=== PATIENT | female | born 1935 | race Caucasian/White ===

== ENCOUNTER 2017-01-10 00:55 | Inpatient (IN) ==
[2017-01-10] MEDS ORDERED: Ipratropium/Albuterol Neb 3 ML IH ONE (01:05)
[2017-01-10] MEDS ORDERED: methylPREDNISolone 125 MG/2 ML VIAL IVP ONE (01:05)
[2017-01-10] MEDS ORDERED: Ipratropium/Albuterol Neb 3 ML ONE ×2 (01:07→09:29)
--- NOTE | 2017-01-10 01:10 | Emergency Department Note ---
Disposition Clinical Impression: SVETLANA (acute kidney injury), NSTEMI (non-ST elevated myocardial infarction) Sepsis Qualifiers: Sepsis type: sepsis due to unspecified organism Qualified Code(s): A41.9 - Sepsis, unspecified organism Acute CHF Qualifiers: Congestive heart failure type: unspecified congestive heart failure type Qualified Code(s): I50.9 - Heart failure, unspecified Disposition: Admitted As Inpatient SOB HPI - General Chief Complaint: ED Shortness of Breath/Dyspnea Stated Complaint: christian Time Seen by Provider: 01/10/17 01:05 Nursing Notes Reviewed: Yes Vital Signs Reviewed: Yes - History of Present Illness Mrs. Moe, 81-year-old female, presents from home via EMS for evaluation of dyspnea. Onset tonight at approximately 22:00. Patient notes she has had several exacerbations of her asthma this week; denies exacerbation being the most severe. She has no home oxygen. She does have home albuterol inhalers which did help her symptoms slightly. She also reports chest pain across the top of her chest. She has difficulty describing it secondary to her dyspnea. Per EMS, on arrival, patient did not have accessory muscle usage however she was in conversational dyspnea. She was hypoxic in the 80s on room air but her saturation juarez to mid high 90s on 6 L nasal cannula while in route. PMH: Hypertension, hyperlipidemia, asthma. No history of CAD or ACS. ROS: Positive: Dyspnea Negative: Fever, chills, nausea, vomiting - Related Data Home Medications Medication Instructions Recorded Confirmed Acetaminophen [Tylenol Arthritis] 1,300 mg PO Q8H PRN 07/20/15 07/20/15 Cholecalciferol (Vitamin D3) 5,000 unit PO DAILY 07/20/15 07/20/15 [Vitamin D3] Ginkgo Biloba [place] Extract [Ginkgo 120 mg PO DAILY 07/20/15 07/20/15 Biloba] Potassium Chloride [K-Tab ER] 10 meq PO DAILY 07/20/15 07/20/15 Simvastatin [Zocor] 20 mg PO HS 07/20/15 07/20/15 hydrOXYzine pamoate [HydrOXYzine 25 mg PO BID PRN 07/20/15 07/20/15 Pamoate] Previous Rx's Medication Instructions Recorded Meclizine HCl [Antivert] 25 mg PO 1-2XD PRN #30 tablet 09/17/14 Ciprofloxacin HCl [Cipro] 250 mg PO BID #14 tab 07/22/15 Lisinopril/Hydrochlorothiazide 1 each PO BID #60 tablet 07/22/15 [Zestoretic 20-25 mg Tablet] Metoprolol [Lopressor] 50 mg PO BID #60 tablet 07/22/15 hydrALAZINE [HydrALAZINE] 25 mg PO Q8H #90 tablet 07/22/15 Allergies Allergy/AdvReac Type Severity Reaction Status Date / Time Sulfa (Sulfonamide Allergy See Verified 01/10/17 07:10 Antibiotics) Comments All systems ED: reviewed and negative except as stated. Review of Systems: As Per HPI Past Medical History - Past Medical History Medical history: Reports: cancer, hyperlipidemia, hypertension, other Surgical history: Reports: other Psychiatric history: Reports: no psych history - Social History Smoking Status: Unknown if ever smoked Smokeless Tobacco Status: No Alcohol use: Reports: none Drug use: Reports: none Physical Exam Vital Signs Reviewed General: Patient is alert, oriented, and in acute respiratory [id number] word conversational dyspnea, accessory muscle usage, tachypnea, tachycardia HEENT: No facial asymmetry. Head is normocephalic and atraumatic. PERRLA. Oral mucosa moist. Trachea midline. Cardiovascular: Heart regular rate and rhythm without clicks, rubs, gallops, or murmurs. No JVD. PMI nondisplaced. Respiratory: Symmetric chest rise with good respiratory effort. Bilateral breath sounds are clear without wheezing, crackles, or rhonchi. Abdomen: Bowel sounds present normoactive x-4 quadrants. Abdomen is soft, nondistended, and nontender. No organomegaly noted. Musculoskeletal: Spontaneously moving all extremities. Neuro: GCS 15. Alert and oriented 4. Skin: Warm, dry, intact. Psych: Patient's affect is appropriate for situation. Course Course Narrative: Patient presents in overt respiratory distress. She is a remote former smoker and denies history of COPD. We will manage her as a COPD/asthma exacerbation. Lung sounds are wheezy; low suspicion for pneumonia, bronchiolitis is possible. 01:27 Patient is refusing IV access. She will only allow a butterfly in the dorsum of her right hand. I was clear and stated that we needed a larger IV access for fluid resuscitation and medication administration. She continually refused. She would not allow any placement anywhere on her left upper extremity. I again stated to the patient that she was limiting my ability to help her by refusing us access to her vascular system. She expressed understanding and continued to refuse. Chest x-ray concerning for pulmonary edema. Patient has no formal diagnosis of congestive heart failure. Will treat as such. D-dimer is elevated. Will CTA chest. CTA chest shows pulmonary edema with no PE. Creatinine clearance calculated as 22 mL/min thus Lovenox is contraindicated. 06:40 Patient's lactate return is 5.0. She is orally been admitted to the hospitalist service. I paged and spoke with Dr. Gomez who who is orally familiar with the patient. He advises no action at this time do not have a source. Will encourage a urine specimen. Chest X-Ray 01/10/17 01:05 IMPRESSION: Pulmonary edema. D/ / Mookie Babcock MD / Mookie Babcock MD Interpreting Provider: Mookie Babcock MD Vital Signs Temperature 97.8 F 01/10/17 01:04 Pulse Rate 103 01/10/17 01:04 Respiratory Rate 22 01/10/17 01:04 Blood Pressure 163/91 01/10/17 01:04 O2 Sat by Pulse Oximetry 95 01/10/17 01:04 Temperature 97.9 F 01/10/17 07:04 Pulse Rate 113 01/10/17 07:04 Respiratory Rate 20 01/10/17 07:04 Blood Pressure 181/103 01/10/17 07:04 O2 Sat by Pulse Oximetry 95 01/10/17 07:04 Oxygen Delivery Oxygen Delivery Nasal Cannula Shortness of Breath/Dyspnea - Lab Data Result diagrams: 01/10/17 06:09 01/10/17 02:05 Lab Results 01/10/17 01/10/17 01/10/17 Range/Units 02:05 02:05 02:05 WBC 22.1 H (4.3-11.1) K/mcL RBC 4.43 (3.82-4.97) M/mcL Hgb 10.2 L (11.5-15.4) g/dL Hct 33.9 L (35.3-44.9) % MCV 76.5 L (83.0-100.0) fL MCH 23.0 L (28.0-33.3) pg MCHC 30.1 L (31.6-35.5) g/dL RDW 16.7 H (11.5-14.5) % Plt Count 376 (140-400) K/mcL MPV 11.3 (9.4-12.4) fL Immature Gran % 0.9 (0-4) % Seg Neutrophils % 89.7 % Lymphocytes % 5.3 % Monocytes % 3.8 % Eosinophils % 0.0 % Basophils % 0.3 % Neutrophils # 19.8 H (1.6-8.9) K/mcL Lymphocytes # 1.2 (0.6-4.6) K/mcL Monocytes # 0.8 (0.0-1.3) K/mcL Eosinophils # 0.0 (0.0-0.6) K/mcL Basophils # 0.1 (0.0-0.2) K/mcL Immature Plt Fraction 6.9 H (1.1-6.1) % PT (9.4-12.1) Seconds INR APTT (26.0-36.0) Seconds D-Dimer 1505 H (0-500) ng/mLFEU VBG pH (7.32-7.42) pH Units VBG pCO2 (41-51) mmHg VBG pO2 (25-50) mmHg VBG HCO3 (21-27) mEq/L Sodium 141 (136-145) mEq/L Potassium 3.6 (3.5-4.5) mEq/L Chloride 106 (98-109) mEq/L Carbon Dioxide 20 (19-29) mEq/L BUN 15 (7-20) mg/dL Creatinine 1.12 H (0.57-1.11) mg/dL Est GFR ( Amer) 57 L (> 60) Est GFR (Non-Af Amer) 47 L (> 60) BUN/Creatinine Ratio 13 (6-26) Glucose 154 H (70-99) mg/dL Calculated Osmolality 296 (280-300) Lactic Acid (0.5-2.2) mmol/L Calcium 9.5 (8.6-10.8) mg/dL Phosphorus (2.3-4.7) mg/dL Magnesium (1.6-2.6) mg/dL Troponin I (0-0.03) ng/mL B-Natriuretic Peptide (0-100) pg/mL 01/10/17 01/10/17 01/10/17 Range/Units 02:05 02:05 02:05 WBC (4.3-11.1) K/mcL RBC (3.82-4.97) M/mcL Hgb (11.5-15.4) g/dL Hct (35.3-44.9) % MCV (83.0-100.0) fL MCH (28.0-33.3) pg MCHC (31.6-35.5) g/dL RDW (11.5-14.5) % Plt Count (140-400) K/mcL MPV (9.4-12.4) fL Immature Gran % (0-4) % Seg Neutrophils % % Lymphocytes % % Monocytes % % Eosinophils % % Basophils % % Neutrophils # (1.6-8.9) K/mcL Lymphocytes # (0.6-4.6) K/mcL Monocytes # (0.0-1.3) K/mcL Eosinophils # (0.0-0.6) K/mcL Basophils # (0.0-0.2) K/mcL Immature Plt Fraction (1.1-6.1) % PT (9.4-12.1) Seconds INR APTT (26.0-36.0) Seconds D-Dimer (0-500) ng/mLFEU VBG pH (7.32-7.42) pH Units VBG pCO2 (41-51) mmHg VBG pO2 (25-50) mmHg VBG HCO3 (21-27) mEq/L Sodium (136-145) mEq/L Potassium (3.5-4.5) mEq/L Chloride (98-109) mEq/L Carbon Dioxide (19-29) mEq/L BUN (7-20) mg/dL Creatinine (0.57-1.11) mg/dL Est GFR ( Amer) (> 60) Est GFR (Non-Af Amer) (> 60) BUN/Creatinine Ratio (6-26) Glucose (70-99) mg/dL Calculated Osmolality (280-300) Lactic Acid 3.5 H (0.5-2.2) mmol/L Calcium (8.6-10.8) mg/dL Phosphorus (2.3-4.7) mg/dL Magnesium (1.6-2.6) mg/dL Troponin I 1.27 H* (0-0.03) ng/mL B-Natriuretic Peptide 1056 H (0-100) pg/mL 01/10/17 01/10/17 01/10/17 Range/Units 02:31 06:09 06:09 WBC 15.9 H (4.3-11.1) K/mcL RBC 4.54 (3.82-4.97) M/mcL Hgb 10.1 L (11.5-15.4) g/dL Hct 34.3 L (35.3-44.9) % MCV 75.6 L (83.0-100.0) fL MCH 22.2 L (28.0-33.3) pg MCHC 29.4 L (31.6-35.5) g/dL RDW 16.7 H (11.5-14.5) % Plt Count 429 H (140-400) K/mcL MPV 11.0 (9.4-12.4) fL Immature Gran % (0-4) % Seg Neutrophils % % Lymphocytes % % Monocytes % % Eosinophils % % Basophils % % Neutrophils # (1.6-8.9) K/mcL Lymphocytes # (0.6-4.6) K/mcL Monocytes # (0.0-1.3) K/mcL Eosinophils # (0.0-0.6) K/mcL Basophils # (0.0-0.2) K/mcL Immature Plt Fraction (1.1-6.1) % PT 12.6 H (9.4-12.1) Seconds INR 1.2 APTT 26.2 (26.0-36.0) Seconds D-Dimer (0-500) ng/mLFEU VBG pH 7.31 L (7.32-7.42) pH Units VBG pCO2 47 (41-51) mmHg VBG pO2 67 H (25-50) mmHg VBG HCO3 24 (21-27) mEq/L Sodium (136-145) mEq/L Potassium (3.5-4.5) mEq/L Chloride (98-109) mEq/L Carbon Dioxide (19-29) mEq/L BUN (7-20) mg/dL Creatinine (0.57-1.11) mg/dL Est GFR ( Amer) (> 60) Est GFR (Non-Af Amer) (> 60) BUN/Creatinine Ratio (6-26) Glucose (70-99) mg/dL Calculated Osmolality (280-300) Lactic Acid (0.5-2.2) mmol/L Calcium (8.6-10.8) mg/dL Phosphorus (2.3-4.7) mg/dL Magnesium (1.6-2.6) mg/dL Troponin I (0-0.03) ng/mL B-Natriuretic Peptide (0-100) pg/mL 01/10/17 01/10/17 Range/Units 06:09 06:09 WBC (4.3-11.1) K/mcL RBC (3.82-4.97) M/mcL Hgb (11.5-15.4) g/dL Hct (35.3-44.9) % MCV (83.0-100.0) fL MCH (28.0-33.3) pg MCHC (31.6-35.5) g/dL RDW (11.5-14.5) % Plt Count (140-400) K/mcL MPV (9.4-12.4) fL Immature Gran % (0-4) % Seg Neutrophils % % Lymphocytes % % Monocytes % % Eosinophils % % Basophils % % Neutrophils # (1.6-8.9) K/mcL Lymphocytes # (0.6-4.6) K/mcL Monocytes # (0.0-1.3) K/mcL Eosinophils # (0.0-0.6) K/mcL Basophils # (0.0-0.2) K/mcL Immature Plt Fraction (1.1-6.1) % PT (9.4-12.1) Seconds INR APTT (26.0-36.0) Seconds D-Dimer (0-500) ng/mLFEU VBG pH (7.32-7.42) pH Units VBG pCO2 (41-51) mmHg VBG pO2 (25-50) mmHg VBG HCO3 (21-27) mEq/L Sodium (136-145) mEq/L Potassium (3.5-4.5) mEq/L Chloride (98-109) mEq/L Carbon Dioxide (19-29) mEq/L BUN (7-20) mg/dL Creatinine (0.57-1.11) mg/dL Est GFR ( Amer) (> 60) Est GFR (Non-Af Amer) (> 60) BUN/Creatinine Ratio (6-26) Glucose (70-99) mg/dL Calculated Osmolality (280-300) Lactic Acid 5.0 H* (0.5-2.2) mmol/L Calcium (8.6-10.8) mg/dL Phosphorus 3.2 (2.3-4.7) mg/dL Magnesium 1.8 (1.6-2.6) mg/dL Troponin I (0-0.03) ng/mL B-Natriuretic Peptide (0-100) pg/mL - EKG Data EKG attestation: Yes I reviewed and interpreted this EKG. 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 Normal intervals NV 160, QRS 84, QT/QTC 39/448. Normal axis. Concerning T-wave inversions in V2 through V5 which are new compared to previous EKG dated 2015. No STEMI Attestation Statement - Attestation Attestation: I examined this patient and my medical decision-making was reviewed with the Resident Physician. I agree with the documented findings, disposition and treatment plan as described except to the extent set forth below. Findings consistent with possible N STEMI. Proceed with heparinization. EKG shows nonspecific ST segment changes. Additionally patient has pulmonary edema, she is very challenging to obtain IV access on. Ultimatly IV access was obtained and CT scan was obtained to rule out pulmonary embolism. The patient will be admitted for an STEMI, pulmonary edema, she is on BiPAP but stable at this time. Antibiotics were given due to lactic acidosis. She will need hydration and trending of lactate. Discussed case with hospitalist team. Plan to admit for further evaluation by her hospitalist team. I spent greater than 35 minutes of critical care time resuscitating this acutely ill patient suffering from hypoxia. This was excluding billable procedures
[2017-01-10] MEDS ORDERED: Levofloxacin 750 MG/150 ML 750 MG/150 ML BAG IVPB ONE (01:31)
[2017-01-10] MEDS ORDERED: Nitroglycerin 1 INCH/GM PACKET TP ONE (02:03)
[2017-01-10] MEDS ORDERED: Furosemide 40 MG/4 ML VIAL IVP ONE (02:03)
[2017-01-10 02:20] LABS: Basophils # 0.1 K/mcL (0.0-0.2); Basophils % 0.3 %; Hematocrit 33.9 % (35.3-44.9); Hemoglobin 10.2 g/dL (11.5-15.4); Immature Granulocytes % 0.9 % (0-4); Immature Platelets 6.9 % (1.1-6.1); Lymphocytes # 1.2 K/mcL (0.6-4.6); Lymphocytes % 5.3 %; Mean Corpuscular HGB Conc 30.1 g/dL (31.6-35.5); Mean Corpuscular Volume 76.5 fL (83.0-100.0); Mean Platelet Volume 11.3 fL (9.4-12.4); Monocytes # 0.8 K/mcL (0.0-1.3); Monocytes % 3.8 %; Neutrophils # 19.8 K/mcL (1.6-8.9); Platelet Count 376 K/mcL (140-400); Red Blood Count 4.43 M/mcL (3.82-4.97); Red Cell Distribution Width 16.7 % (11.5-14.5); Segmented Neutrophils % 89.7 %
[2017-01-10 02:28] LABS: Calcium 9.5 mg/dL (8.6-10.8); Potassium 3.6 mEq/L (3.5-4.5)
[2017-01-10 02:36] LABS: VBG HCO3 24 mEq/L (21-27); VBG PCO2 47 mmHg (41-51); VBG PH 7.31 pH Units (7.32-7.42); VBG PO2 67 mmHg (25-50)
[2017-01-10] MEDS ORDERED: Aspirin 81 MG TAB.CHEW PO ONE (05:14)
[2017-01-10] MEDS ORDERED: *HR* Heparin 5,000 UNIT/ML VIAL IVP ONE (05:16)
[2017-01-10] MEDS ORDERED: *HR* Heparin 5,000 UNIT/ML VIAL IVP PRN ×2 (05:16)
--- NOTE | 2017-01-10 05:59 | Internal Med History&Physical ---
Date of Encounter: 01/10/17 Time of Encounter: 05:56 Assessment and Plan (1) Acute and chronic respiratory failure with hypoxia Current visit: Yes Status: Acute On presentation she was severely tachypneic and had increased work of breathing and was placed on BiPAP. Currently symptoms have improved after Solu-Medrol and bronchodilator and she tolerates nasal cannula. We will continue with nasal cannula and BiPAP as needed for work of breathing. She received treatment with Levaquin and Solu-Medrol for suspected COPD exacerbation. She does not have however a history of COPD. I have reviewed PFTs done outpatient which shows restrictive restrictive pattern which is inconsistent with COPD. I will not continue steroids and antibiotics. Patient does have elevated white blood cell count but no evidence of infection. We will monitor this. At this point there is no clear evidence of sepsis since there is no source of infection. We will order urinalysis and culture to workup elevated white blood cell count. (2) DVT prophylaxis Current visit: Yes Status: Acute Will be covered with heparin drip. (3) Essential hypertension Current visit: Yes Status: Acute We will start IV metoprolol. Continue oral home medication regimen. Hold HARSHA inhibitor due acute renal failure. (4) SVETLANA (acute kidney injury) Current visit: Yes Status: Acute Monitor kidney function closely. Avoid nephrotoxins. (5) Acute CHF Current visit: Yes Status: Acute There is no echocardiogram in our records. Likely acute on chronic diastolic dysfunction triggered by acute ischemic event. We will treat her with IV Lasix, start nitro drip. Start IV metoprolol. We will order echocardiogram. Qualifiers: Congestive heart failure type: unspecified congestive heart failure type Qualified Code(s): I50.9 - Heart failure, unspecified (6) NSTEMI (non-ST elevated myocardial infarction) Current visit: Yes Status: Acute Patient has atypical chest pain with unequivocal ischemic changes on the EKG and elevated troponin collectively supporting a diagnosis of non-ST elevation MO. Admit. Telemetry. Heparin drip per ACS protocol. Trend troponin. Repeat EKG. Consult cardiology. Nothing by mouth for possible need for left heart catheterization. The patient wishes to not be resuscitated or placed on life support in the event of cardiac arrest. She is awake alert oriented and has good understanding of her medical condition and therefore has full decision-making capacity. I will order DNR CCA. (7) Obesity (BMI 30-39.9) Current visit: No Status: Chronic Outpatient weight loss regimen. Internal Medicine - H&P: HPI Chief complaint: Shortness of breath Admitted From: Emergency Dept Plans for Post Hospital Care: Home History of present illness: Ms. Moe is a 81 year old female with past medical history significant for asthma, hyperlipidemia and hypertension who presented to the hospital for shortness of breath. Last night she woke up from sleep suddenly with severe shortness of breath and dull pressure-like chest pain across her upper chest. She used her inhalers but did not get any relief. Symptoms lasted for over an hour and she decided to come to the hospital. Evaluation in the emergency department she was found in respiratory distress. She was treated with nitroglycerin paste, IV steroids and inhaled bronchodilators and placed on BiPAP. She was referred for admission for further care. Currently sharp she reports being chest pain-free. A 10 point review of systems was negative except as above. Family history was reviewed and found to be noncontributory due to patient's advanced age. Social history: Remote history of smoking, no alcohol and drug use. She lives independently. Past Med Surg Social Fam HX - Past Medical History Medical history: cancer, hyperlipidemia, hypertension, other Psychiatric history: no psych history - Past Surgical History Surgical History: other - Social History Smoking Status: Unknown if ever smoked Smokeless Tobacco Status: No Alcohol use: none Drug use: none - Family History Brother Family Member Ethnicity: Non- Living Status: Hx Family Cardiac Disorders: Yes (heart bypass) Hx Family Cancer: Yes (Prostate cancer) Hx Family Endocrine Disorder: Yes (Diabetes, Type I, Kidney dialysis) Internal Medicine - H&P: Meds Meclizine HCl [Antivert] 25 mg PO 1-2XD PRN #30 tablet 09/17/14 [Rx] Acetaminophen [Tylenol Arthritis] 1,300 mg PO Q8H PRN 07/20/15 [History] Cholecalciferol (Vitamin D3) [Vitamin D3] 5,000 unit PO DAILY 07/20/15 [History] Ginkgo Biloba [place] Extract [Ginkgo Biloba] 120 mg PO DAILY 07/20/15 [History] Potassium Chloride [K-Tab ER] 10 meq PO DAILY 07/20/15 [History] Simvastatin [Zocor] 20 mg PO HS 07/20/15 [History] hydrOXYzine pamoate [HydrOXYzine Pamoate] 25 mg PO BID PRN 07/20/15 [History] Ciprofloxacin HCl [Cipro] 250 mg PO BID #14 tab 07/22/15 [Rx] Lisinopril/Hydrochlorothiazide [Zestoretic 20-25 mg Tablet] 1 each PO BID #60 tablet 07/22/15 [Rx] Metoprolol [Lopressor] 50 mg PO BID #60 tablet 07/22/15 [Rx] hydrALAZINE [HydrALAZINE] 25 mg PO Q8H #90 tablet 07/22/15 [Rx] 3 Allergy/AdvReac Type Severity Reaction Status Date / Time Sulfa (Sulfonamide Allergy See Verified 07/20/15 21:48 Antibiotics) Comments All Systems PM: A 10-system review of systems was performed and is negative for pertinent findings except as documented above in the HPI. - Constitutional Vitals: Temp Pulse Resp BP Pulse Ox 97.8 F 114 24 153/84 98 01/10/17 01:04 01/10/17 04:09 01/10/17 04:09 01/10/17 04:09 01/10/17 04:09 General appearance: Present: mild distress, A&O X 3 - Eye Eye exam: Present: PERRL, conjuntiva pink, sclera anicteric Pupils: Present: PERRL - Neck Neck exam general surgery: Present: supple, trachea midline. Absent: lymphadenopathy - Respiratory Respiratory exam: Present: rales, tachypnea. Absent: accessory muscle use, rhonchi, wheezes - Cardiovascular Cardiovascular exam: Present: RRR, +S1, +S2, tachycardia. Absent: diastolic murmur, gallop, rubs, systolic murmur - GI/Abdominal GI/Abdominal exam: Present: normal bowel sounds, soft, no peritoneal signs. Absent: distended, tenderness - Extremities Exam Extremities exam: Present: warm, radial pulses palpable and symmetrical. Absent : calf tenderness, cyanotic, pedal edema - Neurological Exam Neurological exam: Present: CN II-XII intact, oriented X3, no focal deficits. Absent: pronater drift, facial droop, speech deficit - Skin Skin exam: Present: dry, intact Internal Med - H&P Results - Labs CBC & Chem 7: 01/10/17 02:05 01/10/17 02:05 Labs: Short CBC 01/10/17 Range/Units 02:05 WBC 22.1 H (4.3-11.1) K/mcL Hgb 10.2 L (11.5-15.4) g/dL Hct 33.9 L (35.3-44.9) % Plt Count 376 (140-400) K/mcL Neutrophils # 19.8 H (1.6-8.9) K/mcL BMP 01/10/17 02:05 Sodium 141 Potassium 3.6 Chloride 106 Carbon Dioxide 20 BUN 15 Creatinine 1.12 H Glucose 154 H Calcium 9.5 Cardiac Enzymes 01/10/17 Range/Units 02:05 Troponin I 1.27 H* (0-0.03) ng/mL - ABG Interpretation ABG results: 01/10/17 02:31 VBG pH 7.31 L VBG pCO2 47 VBG pO2 67 H VBG HCO3 24 - EKG Data -: EKG Interpreted by Myself EKG shows normal: sinus rhythm (ST depressions and T-wave inversions in leads 1 , aVL and leads V2 to V6.) Rate: tachycardia - EKG Data Prior EKG available for review: yes When compared to previous EKG: there are significant changes (ST depressions and T-wave inversions are new when compared to EKG from July 2015.) - Impressions ITS Impressions Chest X-Ray 01/10/17 01:05 IMPRESSION: Pulmonary edema. D/ / Mookie Babcock MD / Mookie Babcock MD Interpreting Provider: Mookie Babcock MD Chest CTA 01/10/17 02:43 IMPRESSION: 1. Limited study with no central or proximal segmental pulmonary embolus. 2. Pleural effusions. Adjacent airspace disease likely represents atelectasis though ground-glass opacities could also indicate pulmonary edema. 3. Coronary artery disease. D/ / Mookie Babcock MD / Mookie Babcock MD Interpreting Provider: Mookie Babcock MD
[2017-01-10] MEDS ORDERED: Naloxone 0.4 MG/ML INJ IVP PRN (06:21)
[2017-01-10] MEDS ORDERED: Ondansetron 4 MG/2 ML VIAL IVP PRN (06:21)
[2017-01-10 06:24] LABS: INR 1.2; Prothrombin Time 12.6 Seconds (9.4-12.1)
[2017-01-10 06:26] LABS: Activated Partial Thrombo Time 26.2 Seconds (26.0-36.0)
[2017-01-10 06:33] LABS: Magnesium 1.8 mg/dL (1.6-2.6); Phosphorous 3.2 mg/dL (2.3-4.7)
[2017-01-10 06:41] LABS: Hematocrit 34.3 % (35.3-44.9); Hemoglobin 10.1 g/dL (11.5-15.4); Mean Corpuscular HGB Conc 29.4 g/dL (31.6-35.5); Mean Corpuscular Hemoglobin 22.2 pg (28.0-33.3); Mean Corpuscular Volume 75.6 fL (83.0-100.0); Platelet Count 429 K/mcL (140-400); Red Blood Count 4.54 M/mcL (3.82-4.97); Red Cell Distribution Width 16.7 % (11.5-14.5)
[2017-01-10] MEDS: Heparin 25,000 UNIT/500 ML D5W 25,000 UNIT/500 ML MLS IVC SCH (06:41)
[2017-01-10 06:49] LABS: Bilirubin,Urine Negative (Negative); Blood,Urine Trace (Negative); Clarity,Urine Cloudy (Clear); Color,Urine Yellow (Yellow); Glucose,Urine (UA) Normal (Normal); Ketones,Urine Negative (Negative); Leukocyte Esterase,Urine Negative (Negative); Nitrite,Urine Negative (Negative); PH,Urine 5.5 pH Units (5.0-8.0); Protein,Urine Trace mg/dL (Neg-Trace); Specific Gravity,Urine 1.029 (1.010-1.025); Urobilinogen,Urine Normal (Normal)
[2017-01-10 06:51] LABS: Bacteria,Urine None Seen per hpf (None-Few); Hyaline Casts,Urine None Seen per lpf (None-Few); Squamous Epithelial Cell,Urine Many per lpf (None-Few); WBC,Urine 0-3 per hpf (0-3)
[2017-01-10 07:10] LABS: RBC,Urine 0-3 per hpf (0-3)
[2017-01-10] MEDS ORDERED: Ipratropium/Albuterol Neb 3 ML IH PRN (09:14)
--- NOTE | 2017-01-10 09:16 | Event Note ---
Date of Encounter: 01/10/17 Time of Encounter: 08:50 81 year old female with h/o- HTN, HL admitted with worsening shortness of breath and chest discomfort. Patient seen and examined at bedside; reports feeling better, off BiPAP now; Chest- S1, S2 heard, tachycardic Lungs with B/L basal crepts and end-expiratory wheezing Labs reviewed- Troponin peak 6, lactic acid improving to 4.2, WBC improving NSTEMI- chest pain, EKG changes per previous notes (cannot find EKG), Troponin elevation- continue IV Heparin drip, beta ned, ASA, statin; f/up Echocardiogram, Cardiology consult. High risk for complications. Acute CHF- likely due to coronary ischemic event. F/up Echocardiogram. Continue IV Lasix, fluid restriction, breathing treatments, supplemental O2, urine output monitoring; PRN NIPPV; improving; SIRS- had tachypnea, tachycardia, leukocytosis, lactic acidosis at presentation ; however sepsis low suspicion; likely related to underlying cardiopulmonary compromise;
[2017-01-10] MEDS: Nitroglycerin 25 MG/250 ML INFUS..BTL IVC SCH (09:23)
[2017-01-10] MEDS: Furosemide 20 MG/2 ML VIAL IVP SCH ×2 (10:06→20:23)
[2017-01-10] MEDS: Aspirin Enteric Coated 81 MG Tablet PO SCH (10:06)
--- NOTE | 2017-01-10 10:11 | Cardiology Consult Note ---
<Antony Corado Marilyn - Last Filed: 01/10/17 10:42> Date of Encounter: 01/10/17 Time of Encounter: 10:07 Assessment and Plan (1) NSTEMI (non-ST elevated myocardial infarction) Current Visit: Yes Status: Acute Troponins 1.27, 6.47. Continue to trend. EKG with anterolateral EKG changes. Presented with symptoms of dyspnea and chest pain/pressure. Chest pain free currently. On heparin gtt, continue 24-48 hours. Continue ASA, Statin, start PO BB. Recommended LHC--R/B/A discussed. Pt declines, stating she wants medical management only. Will have Dr. Shelley see and discuss with pt as well. Pt is DNR-CCA-DNI. Check echo to evaluate structure and function. Continue to follow. (2) CHF (congestive heart failure) Current Visit: Yes Status: Acute Acute CHF--unknown type, systolic vs diastolic. Check echo to determine type. BNP 1056. CXR with pulmonary edema. Chest CTA with pleural effusions. Agree with IV diuresis--20mg IV BID. Recommend strict I/Os, Na and fluid restriction, daily weights. Qualifiers: Congestive heart failure type: unspecified congestive heart failure type Congestive heart failure chronicity: acute Qualified Code(s): I50.9 - Heart failure, unspecified (3) Accelerated essential hypertension Current Visit: No Status: Acute BP as high as 181/103, most recently 152/85. Starting PO BB. Adjust/add antihypertensives as necessary. Discussion w patient/family: The assessment and plan as outlined above was discussed with the patient and/or family members who expressed understanding and agreement. All questions were answered. Thank you for involving us in the care of your patient. Please call with any questions. I will discuss all the above with Dr. Shelley and make changes as necessary. History of Present Illness Consult date: 01/10/17 Requesting physician: Toby Jenkins Consult reason: NSTEMI Chief complaint: dyspnea, chest pressure History of present illness: Ms. Moe is a 81 year old female with past medical history significant for asthma, hyperlipidemia and hypertension who presented to the hospital for shortness of breath. She woke up from sleep suddenly with severe shortness of breath and dull pressure-like chest pain across her upper chest. She used her inhalers but did not get any relief. Symptoms lasted for over an hour and she decided to come to the ED. She was found in respiratory distress. She was treated with nitroglycerin paste, IV steroids and inhaled bronchodilators and placed on BiPAP. She is currently on nasal cannula O2, reports she is feeling somewhat better, although still has conversational dyspnea. DDimer 1505, Chest CTA negative for PE but showed pleural effusions and CXR with pulmonary edema. Troponins 1.27, 6.47. Cardiology consulted for further recommendations. No previous cardiac testing on file. Pt reports she is currently chest pain free, but still having dyspnea. EKG with anterolateral ischemia. Past Med Surg Social Fam HX - Past Medical History Medical history: cancer, hyperlipidemia, hypertension, other Psychiatric history: no psych history - Past Surgical History Surgical History: cancer surgery, hysterectomy - Social History Smoking Status: Unknown if ever smoked Smokeless Tobacco Status: No Alcohol use: none Drug use: none - Family History Brother History Unknown: Yes Family Member Ethnicity: Non- Living Status: Hx Family Cardiac Disorders: Yes (heart bypass) Hx Family Cancer: Yes (Prostate cancer) Hx Family Endocrine Disorder: Yes (Diabetes, Type I, Kidney dialysis) Medications and Allergies Acetaminophen [Tylenol Arthritis] 1,300 mg PO Q8H PRN 07/20/15 [History] Cholecalciferol (Vitamin D3) [Vitamin D3] 5,000 unit PO DAILY 07/20/15 [History] Ginkgo Biloba [place] Extract [Ginkgo Biloba] 120 mg PO DAILY 07/20/15 [History] Potassium Chloride [K-Tab ER] 10 meq PO DAILY 07/20/15 [History] Simvastatin [Zocor] 20 mg PO HS 07/20/15 [History] Lisinopril/Hydrochlorothiazide [Zestoretic 20-25 mg Tablet] 1 each PO BID #60 tablet 07/22/15 [Rx] Albuterol Sulfate [Albuterol Inhaler] 2 puff IH Q6H PRN 01/10/17 [History] Beclomethasone Diprop 80mcg [Qvar 80 mcg] 2 puff IH BID 01/10/17 [History] Meclizine HCl [Antivert] 12.5 mg PO BID PRN 01/10/17 [History] 3 Allergy/AdvReac Type Severity Reaction Status Date / Time Sulfa (Sulfonamide Allergy See Verified 01/10/17 07:10 Antibiotics) Comments All Systems Review: A 10-system review of systems was performed and is negative for pertinent findings except as documented above in the HPI. - Cardiovascular Cardiovascular: as per HPI, chest pain at rest, chest pain with exertion, dyspnea at rest, dyspnea on exertion, orthopnea - Respiratory Respiratory: dyspnea Physical Examination Vital Signs, Last 4 Hours Temp Pulse Resp BP Pulse Ox 01/10/17 09:52 16 152/85 97 01/10/17 07:55 103 152/85 97 01/10/17 07:04 97.9 F 113 20 181/103 95 Vital Signs Temp Pulse Resp BP Pulse Ox 01/10/17 09:52 16 152/85 97 01/10/17 07:55 103 152/85 97 01/10/17 07:04 97.9 F 113 20 181/103 95 01/10/17 04:09 114 24 153/84 98 01/10/17 02:20 34 97 01/10/17 01:09 28 94 01/10/17 01:04 97.8 F 103 22 163/91 95 Intake and Output 01/09/17 01/10/17 01/10/17 23:59 07:59 15:59 Intake Total 150 / 150 20 / 20 Output Total 200 / 200 Balance 150 / 150 -180 / -180 Intake: IV Fluids 150 / 150 Levaquin Premix 750mg/150 mL 150 / 150 750 mg In 150 ml @ 100 mls/hr IVPB ONCE ONE Rx#:[id number] Oral 20 / 20 Output: Urine 200 / 200 Other: # Voids 1 Weight 77.111 kg 90.322 kg Patient Weight 01/10/17 23:59 Weight 90.322 kg General: Conversant, Other (conversational dyspnea) HEENT: Atraumatic, Normocephaly, Mucus Membranes Moist Neck: Normal carotid pulses Cardiac: Reg Rate and Rhythm, Normal S1 and S2, No Murmur Lungs: Other (diminished) Neuro: Alert and responsive, No focal deficits noted Abdomen: Soft, Non-Tender Skin: No rashes noted on visualized skin Musculoskeletal: No Chest Wall Tenderness Extremities: No Clubbing, No Cyanosis, No Edema, Normal Pulses Results 01/10/17 06:09 01/10/17 02:05 Lab Results 01/10/17 07:49 Troponin I 6.47 H* Short CBC 01/10/17 01/10/17 Range/Units 06:09 02:05 WBC 15.9 H 22.1 H (4.3-11.1) K/mcL Hgb 10.1 L 10.2 L (11.5-15.4) g/dL Hct 34.3 L 33.9 L (35.3-44.9) % Plt Count 429 H 376 (140-400) K/mcL Neutrophils # 19.8 H (1.6-8.9) K/mcL BMP 01/10/17 Range/Units 02:05 Sodium 141 (136-145) mEq/L Potassium 3.6 (3.5-4.5) mEq/L Chloride 106 (98-109) mEq/L Carbon Dioxide 20 (19-29) mEq/L BUN 15 (7-20) mg/dL Creatinine 1.12 H (0.57-1.11) mg/dL Glucose 154 H (70-99) mg/dL Calcium 9.5 (8.6-10.8) mg/dL Cardiac Enzymes 01/10/17 01/10/17 Range/Units 07:49 02:05 Troponin I 6.47 H* 1.27 H* (0-0.03) ng/mL Urine 01/10/17 Range/Units 06:20 Urine Color Yellow (Yellow) Urine Clarity Cloudy A (Clear) Urine pH 5.5 (5.0-8.0) pH Units Ur Specific [place] 1.029 H (1.010-1.025) Urine Protein Trace (Neg-Trace) mg/dL Urine Glucose (UA) Normal (Normal) mg/dL Impressions Chest X-Ray 01/10/17 01:05 IMPRESSION: Pulmonary edema. D/ / Mookie Babcock MD / Mookie Babcock MD Interpreting Provider: Mookie Babcock MD Chest CTA 01/10/17 02:43 IMPRESSION: 1. Limited study with no central or proximal segmental pulmonary embolus. 2. Pleural effusions. Adjacent airspace disease likely represents atelectasis though ground-glass opacities could also indicate pulmonary edema. 3. Coronary artery disease. D/ / Mookie Babcock MD / Mookie Babcock MD Interpreting Provider: Mookie Babcock MD Active Medications Acetaminophen (Tylenol) 650 mg PO Q6HR PRN PRN Reason: Mild Pain (1-3) Stop: 07/12/17 06:22 Hydrocodone Bitart/Acetaminophen ([place] 5-325 Mg) 1 tab PO Q4HR PRN PRN Reason: Moderate Pain (4-6) Stop: 07/12/17 06:22 Albuterol/Ipratropium (Duoneb) 3 ml IH [id number] PRN PRN Reason: Shortness Of Breath/Wheezing Stop: 07/12/17 09:15 Last Admin: 01/10/17 09:52 Dose: 3 ml Aspirin (Aspirin Ec) 81 mg PO DAILY FRANCIS Stop: 07/12/17 09:01 Last Admin: 01/10/17 10:06 Dose: 81 mg Atorvastatin Calcium (Lipitor) 40 mg PO HS FRANCIS Stop: 07/12/17 21:01 Furosemide (Lasix) 20 mg IVP BID FRANCIS Stop: 07/12/17 09:01 Last Admin: 01/10/17 10:06 Dose: 20 mg Heparin Sodium (Porcine) (Heparin) 4,000 unit IVP Q6HR PRN PRN Reason: SEE COMMENTS Stop: 07/12/17 05:17 Heparin Sodium (Porcine) (Heparin) 2,000 unit IVP Q6H PRN PRN Reason: SEE COMMENTS Stop: 07/12/17 05:17 Heparin Sodium/Dextrose (Heparin 25,000 Unit/500 Ml D5w) 25,000 unit in 500 mls @ 18.507 mls/hr IVC .Q24H FRANCIS; 12 UNIT/KG/HR PRN Reason: Protocol Stop: 07/12/17 05:31 Last Admin: 01/10/17 06:41 Dose: 12 unit/kg/hr, 18.507 mls/hr Nitroglycerin (Nitroglycerin Premix 25 Mg/250 Ml) 25 mg in 250 mls @ 3 mls/hr IVC .Q24H FRANCIS; 5 MCG/MIN PRN Reason: Protocol Stop: 07/12/17 06:31 Last Admin: 01/10/17 09:23 Dose: Not Given Levofloxacin/Dextrose (Levaquin Premix 750mg/150 Ml) 750 mg in 150 mls @ 100 mls/hr IVPB Q48H FRANCIS PRN Reason: Protocol Stop: 07/14/17 09:01 Metoprolol Tartrate (Lopressor) 2.5 mg IVP Q6HR FRANCIS Stop: 07/12/17 12:01 Naloxone HCl (Narcan) 0.4 mg IVP Q2MIN PRN PRN Reason: Opioid Reversal Stop: 07/12/17 06:22 Ondansetron HCl (Zofran) 4 mg IVP Q8HR PRN PRN Reason: Nausea And Vomiting Stop: 07/12/17 06:22 - EKG Interpretation EKG results cardiology: personally reviewed (Sinus tach, anterolateral ischemia) Consult Discharge Plan - Plan Referrals: Esdras Newton MD [Primary Care Provider] - <Felice Shelley - Last Filed: 01/10/17 14:29> Date of Encounter: 01/10/17 - Attending Attestation I have personally performed a face to face evaluation on this patient. I have reviewed and agree with the care plan. History and Exam by me shows: 81 YOF presents with a NSTEMI and wellens sign likely LAD disease and rising troponin. Patient needs urgent LHC as EKG suggests unstable possible severe disease. Patient refused LHC and despite knowing the high risk of mortality continues to decline. Currently on medical management. I have personally discussed with her the high risk of mortality and she has responded that she understands but continues to decline. ECHO will be obtained Assessment and Plan Discussion w patient/family: The assessment and plan as outlined above was discussed with the patient and/or family members who expressed understanding and agreement. All questions were answered. Thank you for involving us in the care of your patient. Please call with any questions. History of Present Illness History of present illness: Ms. Moe is a 81 year old female All Systems Review: A 10-system review of systems was performed and is negative for pertinent findings except as documented above in the HPI. Physical Examination Vital Signs, Last 4 Hours Temp Pulse Resp BP Pulse Ox 01/10/17 10:53 98.2 F 107 16 144/79 97 Results 01/10/17 06:09 01/10/17 02:05 Lab Results 01/10/17 07:49 Troponin I 6.47 H*
[2017-01-10] MEDS: Metoprolol XL (24 HR) Succ 25 MG TAB.ER.24H PO SCH (14:59)
[2017-01-10] MEDS: *HR* Metoprolol 5 MG/5 ML VIAL IVP SCH ×2 (18:01→18:24)
--- NOTE | 2017-01-10 19:40 | Electrocardiograph Report ---
[address] [address] Test Date: 2017-01-10 Pat Name: Clementina Moe Department: 104 Room: 2NE26 Gender: F Perfume Compounder: : 1935 Requested By: Ramana Saravia Order Number: [id number] Reading MD: Neisha Billingsley Measurements Intervals [place] Rate: 102 P: 48 [place]: 160 QRS: 0 QRSD: 84 T: 142 QT: 389 QTc: 448 Interpretive Statements SINUS TACHYCARDIA ST DEVIATION AND MODERATE T-WAVE ABNORMALITY, CONSIDER ANTEROLATERAL ISCHEMIA [- 0.1+ mV T WAVE IN V3-V6] Electronically Signed On 01-10-2017 19:38:54 EST by Neisha Billingsley
[2017-01-11] MEDS: *HR* Metoprolol 5 MG/5 ML VIAL IVP SCH ×2 (01:24→06:49)
[2017-01-11] MEDS: Nitroglycerin 25 MG/250 ML INFUS..BTL IVC SCH (07:30)
[2017-01-11 08:33] LABS: Basophils % 0.1 %; Hematocrit 31.6 % (35.3-44.9); Hemoglobin 9.4 g/dL (11.5-15.4); Immature Granulocytes % 0.6 % (0-4); Lymphocytes # 2.1 K/mcL (0.6-4.6); Lymphocytes % 9.6 %; Mean Corpuscular HGB Conc 29.7 g/dL (31.6-35.5); Mean Corpuscular Hemoglobin 22.4 pg (28.0-33.3); Mean Corpuscular Volume 75.4 fL (83.0-100.0); Mean Platelet Volume 11.1 fL (9.4-12.4); Monocytes # 1.6 K/mcL (0.0-1.3); Monocytes % 7.3 %; Neutrophils # 17.7 K/mcL (1.6-8.9); Platelet Count 395 K/mcL (140-400); Red Blood Count 4.19 M/mcL (3.82-4.97); Red Cell Distribution Width 16.9 % (11.5-14.5); Segmented Neutrophils % 82.4 %
[2017-01-11] MEDS: Heparin 25,000 UNIT/500 ML D5W 25,000 UNIT/500 ML MLS IVC SCH (09:02)
[2017-01-11 09:19] LABS: Chol/HDL Ratio 4.1 (0-4.9); Potassium 3.7 mEq/L (3.5-4.5)
[2017-01-11] MEDS: Furosemide 20 MG/2 ML VIAL IVP SCH ×2 (09:36→18:07)
[2017-01-11] MEDS: Aspirin Enteric Coated 81 MG Tablet PO SCH (09:36)
[2017-01-11] MEDS: Metoprolol XL (24 HR) Succ 25 MG TAB.ER.24H PO SCH (09:36)
[2017-01-11 09:56] LABS: Calcium 9.7 mg/dL (8.6-10.8)
--- NOTE | 2017-01-11 10:04 | Cardiology Progress Note ---
Date of Encounter: 01/11/17 Time of Encounter: 10:01 Assessment and Plan (1) NSTEMI (non-ST elevated myocardial infarction) Current Visit: Yes Status: Acute Troponins 1.27, 6.47, 12.17. EKG with anterolateral ischemic changes. Presented with symptoms of dyspnea and chest pain/pressure. Chest pain free currently. On heparin gtt, continue 24-48 hours. Continue ASA, Statin, start PO BB. Recommended LHC--R/B/A discussed. Pt declines, stating she wants medical management only. Discussed all potential outcomes, including . She continues to want medical management only. Pt is DNR-CCA-DNI. Echo pending. (2) CHF (congestive heart failure) Current Visit: Yes Status: Acute Acute CHF--unknown type, systolic vs diastolic. Check echo to determine type. BNP 1056. CXR with pulmonary edema. Chest CTA with pleural effusions. Agree with IV diuresis--20mg IV BID. Renal function mildly worse today-- creatinine 1.32. Management per primary team. Recommend strict I/Os, Na and fluid restriction, daily weights. Qualifiers: Congestive heart failure type: unspecified congestive heart failure type Congestive heart failure chronicity: acute Qualified Code(s): I50.9 - Heart failure, unspecified Discussion w patient/family: The assessment and plan as outlined above was discussed with the patient and/or family members who expressed understanding and agreement. All questions were answered. Thank you for involving us in the care of your patient. Please call with any questions. I will discuss all the above with Dr. Shelley and make changes as necessary. Subjective Principal diagnosis: NSTEMI Interval history: Troponin uptrended--1.27, 6.47, 12.17. Pt denies chest pain. Reports dyspnea is improved. Echo pending. Objective Vital Signs, Last 4 Hours Temp Pulse Resp BP Pulse Ox 01/11/17 07:47 97.7 F 86 14 151/87 97 Vital Signs Temp Pulse Resp BP Pulse Ox 01/11/17 07:47 97.7 F 86 14 151/87 97 01/11/17 05:00 97.8 F 78 20 135/75 97 01/11/17 00:00 98 F 83 18 145/88 97 01/10/17 19:35 97.8 F 101 20 155/96 96 01/10/17 14:30 97.8 F 109 18 150/87 97 01/10/17 10:53 98.2 F 107 16 144/79 97 General: Conversant, No Apparent Distress HEENT: Atraumatic, Normocephaly, Mucus Membranes Moist Neck: Normal carotid pulses Cardiac: Reg Rate and Rhythm, Normal S1 and S2, No Murmur Lungs: Other (diminished) Neuro: Alert and responsive, No focal deficits noted Abdomen: Soft, Non-Tender Skin: No rashes noted on visualized skin Musculoskeletal: No Chest Wall Tenderness Extremities: No Clubbing, No Cyanosis, No Edema, Normal Pulses Results 01/11/17 08:13 01/11/17 08:13 Lab Results 01/10/17 01/10/17 01/10/17 14:13 14:13 22:26 WBC Hgb Hct Plt Count APTT 62.6 H D 50.3 H Sodium Potassium Chloride Carbon Dioxide BUN Creatinine Glucose Magnesium Troponin I 12.17 H* 01/11/17 01/11/17 01/11/17 08:13 08:13 08:13 WBC 21.4 H Hgb 9.4 L Hct 31.6 L Plt Count 395 APTT Sodium 139 Potassium 3.7 Chloride 102 Carbon Dioxide 23 BUN 24 H Creatinine 1.32 H Glucose 112 H Magnesium 1.9 Troponin I 01/11/17 08:13 WBC Hgb Hct Plt Count APTT 63.7 H Sodium Potassium Chloride Carbon Dioxide BUN Creatinine Glucose Magnesium Troponin I Short CBC 01/11/17 Range/Units 08:13 WBC 21.4 H (4.3-11.1) K/mcL Hgb 9.4 L (11.5-15.4) g/dL Hct 31.6 L (35.3-44.9) % Plt Count 395 (140-400) K/mcL Neutrophils # 17.7 H (1.6-8.9) K/mcL BMP 01/11/17 Range/Units 08:13 Sodium 139 (136-145) mEq/L Potassium 3.7 (3.5-4.5) mEq/L Chloride 102 (98-109) mEq/L Carbon Dioxide 23 (19-29) mEq/L BUN 24 H (7-20) mg/dL Creatinine 1.32 H (0.57-1.11) mg/dL Glucose 112 H (70-99) mg/dL Cardiac Enzymes 01/10/17 Range/Units 14:13 Troponin I 12.17 H* (0-0.03) ng/mL Active Medications Acetaminophen (Tylenol) 650 mg PO Q6HR PRN PRN Reason: Mild Pain (1-3) Stop: 07/12/17 06:22 Hydrocodone Bitart/Acetaminophen ([place] 5-325 Mg) 1 tab PO Q4HR PRN PRN Reason: Moderate Pain (4-6) Stop: 07/12/17 06:22 Albuterol/Ipratropium (Duoneb) 3 ml IH [id number] PRN PRN Reason: Shortness Of Breath/Wheezing Stop: 07/12/17 09:15 Last Admin: 01/10/17 09:52 Dose: 3 ml Aspirin (Aspirin Ec) 81 mg PO DAILY FRANCIS Stop: 07/12/17 09:01 Last Admin: 01/11/17 09:36 Dose: 81 mg Atorvastatin Calcium (Lipitor) 40 mg PO HS FRANCIS Stop: 07/12/17 21:01 Last Admin: 01/10/17 20:23 Dose: 40 mg Furosemide (Lasix) 20 mg IVP BID FRANCIS Stop: 07/12/17 09:01 Last Admin: 01/11/17 09:36 Dose: 20 mg Heparin Sodium (Porcine) (Heparin) 4,000 unit IVP Q6HR PRN PRN Reason: SEE COMMENTS Stop: 07/12/17 05:17 Heparin Sodium (Porcine) (Heparin) 2,000 unit IVP Q6H PRN PRN Reason: SEE COMMENTS Stop: 07/12/17 05:17 Last Admin: 01/11/17 01:30 Dose: 2,000 unit Heparin Sodium/Dextrose (Heparin 25,000 Unit/500 Ml D5w) 25,000 unit in 500 mls @ 18.507 mls/hr IVC .Q24H FRANCIS; 12 UNIT/KG/HR PRN Reason: Protocol Stop: 07/12/17 05:31 Last Titration: 01/11/17 09:40 Dose: 13.94 unit/kg/hr, 21.5 mls/hr Nitroglycerin (Nitroglycerin Premix 25 Mg/250 Ml) 25 mg in 250 mls @ 3 mls/hr IVC .Q24H FRANCIS; 5 MCG/MIN PRN Reason: Protocol Stop: 07/12/17 06:31 Last Admin: 01/11/17 07:30 Dose: Not Given Levofloxacin/Dextrose (Levaquin Premix 750mg/150 Ml) 750 mg in 150 mls @ 100 mls/hr IVPB Q48H FRANCIS PRN Reason: Protocol Stop: 07/14/17 09:01 Metoprolol Succinate (Toprol Xl) 25 mg PO DAILY [facility] Stop: 07/12/17 11:01 Last Admin: 01/11/17 09:36 Dose: 25 mg Metoprolol Tartrate (Lopressor) 2.5 mg IVP Q6HR [facility] Stop: 07/12/17 12:01 Last Admin: 01/11/17 06:49 Dose: 2.5 mg Naloxone HCl (Narcan) 0.4 mg IVP Q2MIN PRN PRN Reason: Opioid Reversal Stop: 07/12/17 06:22 Ondansetron HCl (Zofran) 4 mg IVP Q8HR PRN PRN Reason: Nausea And Vomiting Stop: 07/12/17 06:22 - Imaging and Cardiology Echo: pending Consult Discharge Plan - Plan Referrals: Esdras Newton MD [Primary Care Provider] -
[2017-01-11] MEDS ORDERED: Furosemide 20 MG/2 ML VIAL IVP ONE (12:25)
--- NOTE | 2017-01-11 12:37 | Internal Med Progress Note ---
Date of Encounter: 01/11/17 Time of Encounter: 12:35 - Assessment and plan (1) Acute respiratory failure with hypoxia Current Visit: Yes Status: Acute Assessment and plan: Due to underlying acute CHF, [place]. Patient noted to be audibly wheezing, in mild respiratory distress. We will give an extra dose of IV Lasix. Continue supplemental oxygen, currently requiring 4 L/m via nasal cannula. (2) Delirium due to general medical condition Current Visit: Yes Status: Acute Assessment and plan: Supportive care and fall precautions. Patient has multiple social issues, she has poor understanding of her medical diagnosis and prognosis at this time although she seems to be oriented in general. She claims she has a nephew, who is her power of assistant prosecuting attorney. All the contact numbers on her chart are not working. Spoke to her field service representative at [employer], who have no contact information for any family members for the patient and they have concerns regarding her safety at home; business services specialist sales pending; (3) SVETLANA (acute kidney injury) Current Visit: Yes Status: Acute Assessment and plan: Serum creatinine noted to be slightly worse, likely due to IV Lasix. Continue to monitor closely. (4) NSTEMI (non-ST elevated myocardial infarction) Current Visit: Yes Status: Acute Assessment and plan: Patient presented with shortness of breath, noted to have EKG changes and troponin noted to be trending up, peak troponin at around 16. Cardiology has been consulted, recommended left heart catheterization, patient continues to decline. Continue IV heparin drip, aspirin, Plavix, beta ned and statin. Follow-up echocardiogram. Risk of cardiopulmonary complications high. (5) Acute CHF Current Visit: Yes Status: Acute Assessment and plan: Likely secondary to IL. Follow-up echocardiogram and continue IV Lasix, beta ned. Fluid restriction. Supplemental oxygen. Qualifiers: Congestive heart failure type: unspecified congestive heart failure type Qualified Code(s): I50.9 - Heart failure, unspecified (6) Essential hypertension Current Visit: Yes Status: Chronic - Subjective Interval history: Patient gets intermittently confused, cannot comprehend her medical conditions; she reports she had a heart attack but refuses heart cath and thinks she will be okay with home O2; cannot remember her family members names or contact numbers; Noted to be visibly short of breath although she denies chest pain, SOB, palpitations or any other complaints; - Constitutional Vitals: Temp Pulse Resp BP Pulse Ox 98.4 F 82 14 130/68 99 01/11/17 11:59 01/11/17 11:59 01/11/17 11:59 01/11/17 11:59 01/11/17 11:59 General appearance: Present: A&O X 2, mild distress. Absent: answers questions appropriately - Respiratory Respiratory exam: Present: rales (Bibasal crepts and cardiac wheezing). Absent : accessory muscle use, rhonchi, wheezes - Cardiovascular Cardiovascular exam: Present: RRR, +S1, +S2. Absent: diastolic murmur, gallop, rubs, systolic murmur - GI/Abdominal GI/Abdominal exam: Present: normal bowel sounds, soft, no peritoneal signs. Absent: distended, tenderness - Extremities Exam Extremities exam: Present: full ROM, pedal edema, warm, radial pulses palpable and symmetrical. Absent: calf tenderness, cyanotic - Neurological Exam Neurological exam: Present: altered, CN II-XII intact, no focal deficits. Absent: pronater drift, facial droop, speech deficit Internal Medicine: Result - Labs CBC & Chem 7: 01/12/17 04:40 01/12/17 04:40 Labs: Short CBC 01/11/17 Range/Units 08:13 WBC 21.4 H (4.3-11.1) K/mcL Hgb 9.4 L (11.5-15.4) g/dL Hct 31.6 L (35.3-44.9) % Plt Count 395 (140-400) K/mcL Neutrophils # 17.7 H (1.6-8.9) K/mcL BMP 01/11/17 08:13 Sodium 139 Potassium 3.7 Chloride 102 Carbon Dioxide 23 BUN 24 H Creatinine 1.32 H Glucose 112 H Calcium 9.7 Cardiac Enzymes 01/10/17 Range/Units 14:13 Troponin I 12.17 H* (0-0.03) ng/mL - ABG Interpretation ABG results: PT/INR, D-dimer PT 12.6 Seconds (9.4-12.1) H 01/10/17 06:09 D-Dimer 1505 ng/mLFEU (0-500) H 01/10/17 02:05 Consult Discharge Plan - Plan Referrals: Esdras Newton MD [Primary Care Provider] -
[2017-01-11] MEDS: Beclomethasone 80mcg MDI IH SCH (20:43)
[2017-01-11] MEDS: Acetaminophen 325 MG TABLET PO PRN (23:50)
[2017-01-12] MEDS: Heparin 25,000 UNIT/500 ML D5W 25,000 UNIT/500 ML MLS IVC SCH (04:52)
[2017-01-12] MEDS: Nitroglycerin 25 MG/250 ML INFUS..BTL IVC SCH (05:01)
[2017-01-12 05:13] LABS: Hematocrit 30.6 % (35.3-44.9); Hemoglobin 9.1 g/dL (11.5-15.4); Lymphocytes % 26.4 %; Mean Corpuscular HGB Conc 29.7 g/dL (31.6-35.5); Mean Corpuscular Hemoglobin 22.3 pg (28.0-33.3); Mean Platelet Volume 11.1 fL (9.4-12.4); Monocytes % 7.8 %; Platelet Count 330 K/mcL (140-400); Red Blood Count 4.08 M/mcL (3.82-4.97); Red Cell Distribution Width 16.5 % (11.5-14.5); Segmented Neutrophils % 64.3 %
[2017-01-12 05:14] LABS: Basophils % 0.2 %; Eosinophils % 0.3 %; Lymphocytes # 3.6 K/mcL (0.6-4.6); Monocytes # 1.1 K/mcL (0.0-1.3); Neutrophils # 8.8 K/mcL (1.6-8.9); Nucleated Red Blood Cells 0.1 /100 WBC (0)
[2017-01-12 05:28] LABS: Calcium 9.1 mg/dL (8.6-10.8)
[2017-01-12] MEDS: Aspirin Enteric Coated 81 MG Tablet PO SCH (08:56)
[2017-01-12] MEDS: Metoprolol XL (24 HR) Succ 25 MG TAB.ER.24H PO SCH (08:56)
[2017-01-12] MEDS: Furosemide 20 MG/2 ML VIAL IVP SCH ×2 (08:56→17:23)
[2017-01-12] MEDS: Acetaminophen 325 MG TABLET PO PRN (08:59)
[2017-01-12] MEDS ORDERED: Levofloxacin 750 MG/150 ML 750 MG/150 ML BAG IVPB SCH (09:00)
[2017-01-12] MEDS: Beclomethasone 80mcg MDI IH SCH ×2 (09:12→20:09)
--- NOTE | 2017-01-12 11:28 | Cardiology Progress Note ---
Date of Encounter: 01/12/17 Time of Encounter: 11:25 Assessment and Plan (1) NSTEMI (non-ST elevated myocardial infarction) Current Visit: Yes Status: Acute Troponins 1.27, 6.47, 12.17. EKG with anterolateral ischemic changes. Presented with symptoms of dyspnea and chest pain/pressure. Chest pain free currently. On heparin gtt, has been continued for 24-48 hours. Will now stop. Continue ASA , Statin, BB. Start Plavix 75mg daily. Echo resulted--EF 30-35%, grossly segmental LV systolic dysfunction (LAD distribution), moderate LVDD, mild valvular disease. Recommended LHC--R/B/A discussed. Pt declines, stating she wants medical management only. Discussed all potential outcomes, including and explained to her that given her troponin and echo findings, her outcome is poor. She verbalizes understanding of everything discussed. She continues to want medical management only. Pt is DNR-CCA-DNI. Cardiology signing off. Reconsult PRN. (2) CHF (congestive heart failure) Current Visit: Yes Status: Acute Acute CHF--confirmed systolic with EF 30-35%, segmental LV systolic dysfunction (LAD distribution). BNP 1056. CXR with pulmonary edema. Chest CTA with pleural effusions. Agree with IV diuresis--20mg IV BID. Creatinine 1.16, improved. Recommend strict I/Os, Na and fluid restriction, daily weights. Cumulative I/O net positive, but symptoms have improved, so question accuracy. K 3.0--will replace. Qualifiers: Congestive heart failure type: systolic Congestive heart failure chronicity : acute Qualified Code(s): I50.21 - Acute systolic (congestive) heart failure (3) Cardiomyopathy Current Visit: Yes Status: Acute Echo EF 30-35%, grossly segmental LV systolic dysfunction LAD distribution. Given NSTEMI and segmental LV dysfunction on echo, presume ischemic cardiomyopathy, but unable to be confirmed since pt declines LHC. Pt wants medical management only, as above. All potential outcomes discussed. Continue BB. Add low dose ACEi. Qualifiers: Cardiomyopathy type: unspecified Qualified Code(s): I42.9 - Cardiomyopathy , unspecified Discussion w patient/family: The assessment and plan as outlined above was discussed with the patient and/or family members who expressed understanding and agreement. All questions were answered. Thank you for involving us in the care of your patient. Please call with any questions. I will discuss all the above with Dr. Juventino Billingsley and make changes as necessary. Subjective Principal diagnosis: NSTEMI Interval history: Troponin uptrended--1.27, 6.47, 12.17. Pt denies chest pain. Reports dyspnea is improved. Echo revealed EF 30-35%, mild asymmetric hypertrophy of basal septum. Grossly, segmental LV systolic dysfunction (LAD distribution), moderate LVDD. Mild AR, MR, MS (MG 5mmHg), TR, moderate phtn est RVSP 53mmHg, mild OK. K 3.0 today, creatinine 1.16, HGB 9.1. Objective Vital Signs, Last 4 Hours Temp Pulse Resp BP Pulse Ox 01/12/17 10:53 98.2 F 94 18 140/72 94 01/12/17 09:12 16 98 Vital Signs Temp Pulse Resp BP Pulse Ox 01/12/17 10:53 98.2 F 94 18 140/72 94 01/12/17 09:12 16 98 01/12/17 07:00 97.9 F 85 20 144/79 96 01/12/17 03:00 97.5 F L 84 16 128/73 95 01/11/17 20:43 16 98 01/11/17 19:00 94 22 159/82 95 01/11/17 15:38 98.2 F 93 14 155/94 95 01/11/17 11:59 98.4 F 82 14 130/68 99 Intake and Output 01/11/17 01/12/17 01/12/17 23:59 07:59 15:59 Intake Total 335 / 335 500 / 500 Output Total 0 / 0 Balance 335 / 335 500 / 500 Intake: IV Fluids 215 / 215 500 / 500 Heparin 25,000 UNIT/500 ML D5W 215 / 215 500 / 500 25,000 unit In 500 ml @ 12 UNIT /KG/HR 18.507 mls/hr IVC .Q24H [facility] Rx#:[id number] Oral 120 / 120 0 / 0 Output: Urine 0 / 0 Other: Meal Dinner Percent of Meal Consumed 100% # Voids 1 1 2 Weight 85.5 kg Patient Weight 01/12/17 23:59 Weight 85.5 kg General: Conversant, No Apparent Distress HEENT: Atraumatic, Normocephaly, Mucus Membranes Moist Neck: No JVD, Normal carotid pulses Cardiac: Reg Rate and Rhythm, Normal S1 and S2, No Murmur Lungs: Other (diminished) Neuro: Alert and responsive, No focal deficits noted Abdomen: Soft, Non-Tender Skin: No rashes noted on visualized skin Musculoskeletal: No Chest Wall Tenderness Extremities: No Clubbing, No Cyanosis, No Edema, Normal Pulses Results 01/12/17 04:40 01/12/17 04:40 Lab Results 01/11/17 01/12/17 01/12/17 17:42 04:40 04:40 WBC 13.7 H Hgb 9.1 L Hct 30.6 L Plt Count 330 APTT 60.5 H Sodium 139 Potassium 3.0 L Chloride 101 Carbon Dioxide 30 H BUN 31 H Creatinine 1.16 H Glucose 92 Calcium 9.1 Short CBC 01/12/17 Range/Units 04:40 WBC 13.7 H (4.3-11.1) K/mcL Hgb 9.1 L (11.5-15.4) g/dL Hct 30.6 L (35.3-44.9) % Plt Count 330 (140-400) K/mcL Neutrophils # 8.8 (1.6-8.9) K/mcL BMP 01/12/17 Range/Units 04:40 Sodium 139 (136-145) mEq/L Potassium 3.0 L (3.5-4.5) mEq/L Chloride 101 (98-109) mEq/L Carbon Dioxide 30 H (19-29) mEq/L BUN 31 H (7-20) mg/dL Creatinine 1.16 H (0.57-1.11) mg/dL Glucose 92 (70-99) mg/dL Calcium 9.1 (8.6-10.8) mg/dL Impressions Echocardiogram 01/10/17 06:29 Impressions: LVEF 30-35%. Mild asymmetric hypertrophy of the basal septum. Grossly, segmental left ventricular systolic dysfunction (LAD distribution) Moderate left ventricular diastolic dysfunction. Normal right ventricular structure and function. Mild aortic regurgitation. Mild mitral regurgitation. Mild mitral stenosis. Mean gradient 5 mmHg (HR 96 bpm). . Mild tricuspid regurgitation. Moderate pulmonary hypertension. Estimated RVSP is 53 mmHg. Mild pulmonic regurgitation. Future studies should be completed with contrast enhancement. Left Ventricular Wall Motion: Rest Echo Findings The apex, apical inferior, apical anterior, mid anterior, apical septal, apical lateral and mid anterior septal ramos were hypokinetic. All other wall segments showed normal motion. Findings: Study Quality * Technically sub-optimal due to poor echocardiographic windows. ECG Findings * Normal sinus rhythm. Left Ventricle * LVEF 30-35%. * Mild asymmetric hypertrophy of the basal septum. * Grossly, segmental left ventricular systolic dysfunction (LAD distribution) * Moderate left ventricular diastolic dysfunction. Right Ventricle * Normal right ventricular structure and function. Left Atrium * Moderately dilated left atrium. Right Atrium * Mildly dilated right atrium. Interatrial Septum * No evidence of PFO by color Doppler. Aortic Valve * Trileaflet aortic valve. * Mildly sclerotic aortic valve leaflets. * Mild aortic regurgitation. * No aortic stenosis. Mitral Valve * Mildly thickened mitral valve leaflets. * Mild mitral annular calcification * Mild mitral regurgitation. * Mild mitral stenosis. Mean gradient 5 mmHg (HR 96 bpm). . Tricuspid Valve * Normal tricuspid valve structure. * Mild tricuspid regurgitation. * Moderate pulmonary hypertension. * Estimated RVSP is 53 mmHg. * Estimated RA pressure is 5 mmHg. Pulmonic Valve * Normal pulmonic valve structure. * Mild pulmonic regurgitation. Aorta * Normally sized aortic root. Pericardium * There is a trivial pericardial effusion present. IVC * Normal IVC dimensions and inspiratory collapse. Pulmonary Artery * Normal visualized portions of the main pulmonary artery. Active Medications Acetaminophen (Tylenol) 650 mg PO Q6HR PRN PRN Reason: Mild Pain (1-3) Stop: 07/12/17 06:22 Last Admin: 01/12/17 08:59 Dose: 650 mg Hydrocodone Bitart/Acetaminophen ([place] 5-325 Mg) 1 tab PO Q4HR PRN PRN Reason: Moderate Pain (4-6) Stop: 07/12/17 06:22 Albuterol/Ipratropium (Duoneb) 3 ml IH [id number] PRN PRN Reason: Shortness Of Breath/Wheezing Stop: 07/12/17 09:15 Last Admin: 01/10/17 09:52 Dose: 3 ml Aspirin (Aspirin Ec) 81 mg PO DAILY [facility] Stop: 07/12/17 09:01 Last Admin: 01/12/17 08:56 Dose: 81 mg Atorvastatin Calcium (Lipitor) 40 mg PO HS [facility] Stop: 07/12/17 21:01 Last Admin: 01/11/17 20:21 Dose: 40 mg Beclomethasone Dipropionate (Qvar 80 Mcg) 2 puff IH BIDR [facility]ANCIS PRN Reason: Protocol Stop: 07/13/17 22:01 Last Admin: 01/12/17 09:12 Dose: 2 puff Furosemide (Lasix) 20 mg IVP BIDDIURETIC [facility]ANC[facility] Stop: 07/12/17 09:01 Last Admin: 01/12/17 08:56 Dose: 20 mg Heparin Sodium (Porcine) (Heparin) 4,000 unit IVP Q6HR PRN PRN Reason: SEE COMMENTS Stop: 07/12/17 05:17 Heparin Sodium (Porcine) (Heparin) 2,000 unit IVP Q6H PRN PRN Reason: SEE COMMENTS Stop: 07/12/17 05:17 Last Admin: 01/11/17 01:30 Dose: 2,000 unit Heparin Sodium/Dextrose (Heparin 25,000 Unit/500 Ml D5w) 25,000 unit in 500 mls @ 18.507 mls/hr IVC .Q24H FRANCIS; 12 UNIT/KG/HR PRN Reason: Protocol Stop: 07/12/17 05:31 Last Admin: 01/12/17 04:52 Dose: 13.94 unit/kg/hr, 21.5 mls/hr Nitroglycerin (Nitroglycerin Premix 25 Mg/250 Ml) 25 mg in 250 mls @ 3 mls/hr IVC .Q24H FRANCIS; 5 MCG/MIN PRN Reason: Protocol Stop: 07/12/17 06:31 Last Admin: 01/12/17 05:01 Dose: Not Given Levofloxacin/Dextrose (Levaquin Premix 750mg/150 Ml) 750 mg in 150 mls @ 100 mls/hr IVPB Q48H [facility]IS PRN Reason: Protocol Stop: 07/14/17 09:01 Metoprolol Succinate (Toprol Xl) 25 mg PO DAILY [facility] Stop: 07/12/17 11:01 Last Admin: 01/12/17 08:56 Dose: 25 mg Naloxone HCl (Narcan) 0.4 mg IVP Q2MIN PRN PRN Reason: Opioid Reversal Stop: 07/12/17 06:22 Ondansetron HCl (Zofran) 4 mg IVP Q8HR PRN PRN Reason: Nausea And Vomiting Stop: 07/12/17 06:22 Potassium Chloride (Potassium Chloride) 10 meq PO DAILY [facility] Stop: 07/14/17 09:01 Last Admin: 01/12/17 08:56 Dose: 10 meq - Imaging and Cardiology Echo: report reviewed Consult Discharge Plan - Plan Referrals: Esdras Newton MD [Primary Care Provider] -
[2017-01-12] MEDS ORDERED: Potassium Chloride Elixir 20 MEQ/15 ML UDC PO ONE (11:35)
--- NOTE | 2017-01-12 12:10 | Internal Med Progress Note ---
Date of Encounter: 01/12/17 Time of Encounter: 12:08 - Assessment and plan (1) Acute respiratory failure with hypoxia Current Visit: Yes Status: Acute Assessment and plan: Due to underlying acute CHF, AK. Improving. Continue supplemental oxygen, currently requiring 4 L/m via nasal cannula. Will need home O2 evaluation at discharge. (2) Delirium due to general medical condition Current Visit: Yes Status: Acute Assessment and plan: Supportive care and fall precautions. Unclear patient;s baseline functional and mental status. SHe was able to give me her niece's number today- [phone]; I have personally called and spoke to YANET, who is patient;s niece; her , Toni is financial POA; they will visit patient on 12/15. Her brothers and [id number] will be here tomorrow; Psychiatry consult noted; (3) SVETLANA (acute kidney injury) Current Visit: Yes Status: Acute Assessment and plan: Serum creatinine noted to be improving. Continue to monitor closely. (4) NSTEMI (non-ST elevated myocardial infarction) Current Visit: Yes Status: Acute Assessment and plan: Patient presented with shortness of breath, noted to have EKG changes and troponin noted to be trending up, peak troponin at around 16. Cardiology signed off today, recommended medical management as patient continues to decline left heart catheterization. DisContinue IV heparin drip, continue aspirin, Plavix, beta ned and statin. Echocardiogram shows severely reduced ejection fraction around 30-35%, significant left ventricular segmental dysfunction in the LAD distribution, moderate left ventricular diastolic dysfunction, moderate pulmonary hypertension. Risk of cardiopulmonary complications high. (5) Acute CHF Current Visit: Yes Status: Acute Assessment and plan: Likely secondary to AK. Echocardiogram as above. We will change diuretics to oral Lasix, continue beta ned. Fluid restriction. Supplemental oxygen. Qualifiers: Congestive heart failure type: combined Qualified Code(s): I50.41 - Acute combined systolic (congestive) and diastolic (congestive) heart failure (6) Essential hypertension Current Visit: Yes Status: Chronic - Subjective Interval history: Reports feeling well; improved shortness of breath, requiring 4L/min via NC O2, reports thats all she needs; no chest pain, tolerates oral diet; reports that her family- nephew Toni has called and will be here on Monday? - Constitutional Vitals: Temp Pulse Resp BP Pulse Ox 98.2 F 94 18 140/72 94 01/12/17 10:53 01/12/17 10:53 01/12/17 10:53 01/12/17 10:53 01/12/17 10:53 General appearance: Present: A&O X 2, answers questions appropriately - Respiratory Respiratory exam: Present: CTAB (improved breath sounds and crepts). Absent: accessory muscle use, rales, rhonchi, wheezes - Cardiovascular Cardiovascular exam: Present: RRR, +S1, +S2, systolic murmur. Absent: diastolic murmur, gallop, rubs - GI/Abdominal GI/Abdominal exam: Present: normal bowel sounds, soft, no peritoneal signs. Absent: distended, tenderness - Extremities Exam Extremities exam: Present: full ROM, pedal edema (improved), warm, radial pulses palpable and symmetrical. Absent: calf tenderness, cyanotic - Neurological Exam Neurological exam: Present: CN II-XII intact, no focal deficits. Absent: pronater drift, facial droop, speech deficit Internal Medicine: Result - Labs CBC & Chem 7: 01/12/17 04:40 01/12/17 04:40 Labs: Short CBC 01/12/17 Range/Units 04:40 WBC 13.7 H (4.3-11.1) K/mcL Hgb 9.1 L (11.5-15.4) g/dL Hct 30.6 L (35.3-44.9) % Plt Count 330 (140-400) K/mcL Neutrophils # 8.8 (1.6-8.9) K/mcL BMP 01/12/17 04:40 Sodium 139 Potassium 3.0 L Chloride 101 Carbon Dioxide 30 H BUN 31 H Creatinine 1.16 H Glucose 92 Calcium 9.1 - ABG Interpretation ABG results: PT/INR, D-dimer PT 12.6 Seconds (9.4-12.1) H 01/10/17 06:09 D-Dimer 1505 ng/mLFEU (0-500) H 01/10/17 02:05 - Impressions Impressions Echocardiogram 01/10/17 06:29 Impressions: LVEF 30-35%. Mild asymmetric hypertrophy of the basal septum. Grossly, segmental left ventricular systolic dysfunction (LAD distribution) Moderate left ventricular diastolic dysfunction. Normal right ventricular structure and function. Mild aortic regurgitation. Mild mitral regurgitation. Mild mitral stenosis. Mean gradient 5 mmHg (HR 96 bpm). . Mild tricuspid regurgitation. Moderate pulmonary hypertension. Estimated RVSP is 53 mmHg. Mild pulmonic regurgitation. Future studies should be completed with contrast enhancement. Left Ventricular Wall Motion: Rest Echo Findings The apex, apical inferior, apical anterior, mid anterior, apical septal, apical lateral and mid anterior septal ramos were hypokinetic. All other wall segments showed normal motion. Findings: Study Quality * Technically sub-optimal due to poor echocardiographic windows. ECG Findings * Normal sinus rhythm. Left Ventricle * LVEF 30-35%. * Mild asymmetric hypertrophy of the basal septum. * Grossly, segmental left ventricular systolic dysfunction (LAD distribution) * Moderate left ventricular diastolic dysfunction. Right Ventricle * Normal right ventricular structure and function. Left Atrium * Moderately dilated left atrium. Right Atrium * Mildly dilated right atrium. Interatrial Septum * No evidence of PFO by color Doppler. Aortic Valve * Trileaflet aortic valve. * Mildly sclerotic aortic valve leaflets. * Mild aortic regurgitation. * No aortic stenosis. Mitral Valve * Mildly thickened mitral valve leaflets. * Mild mitral annular calcification * Mild mitral regurgitation. * Mild mitral stenosis. Mean gradient 5 mmHg (HR 96 bpm). . Tricuspid Valve * Normal tricuspid valve structure. * Mild tricuspid regurgitation. * Moderate pulmonary hypertension. * Estimated RVSP is 53 mmHg. * Estimated RA pressure is 5 mmHg. Pulmonic Valve * Normal pulmonic valve structure. * Mild pulmonic regurgitation. Aorta * Normally sized aortic root. Pericardium * There is a trivial pericardial effusion present. IVC * Normal IVC dimensions and inspiratory collapse. Pulmonary Artery * Normal visualized portions of the main pulmonary artery. Consult Discharge Plan - Plan Referrals: Esdras Newton MD [Primary Care Provider] -
--- NOTE | 2017-01-12 15:19 | Consult Note ---
Date of Encounter: 01/12/17 Time of Encounter: 14:45 Assessment & Recommendation (1) Delirium due to general medical condition Current visit: No Status: Acute Assessment & Recommendation: Patient is currently experiencing delirium due to multiple medical conditions as indicated in the medical history. Evaluation of competency requires patient to be stable and as close as possible to baseline. Also competency decision is decided by the courts in response to application for guardianship. At that time information related to safety concern at home and noncompliance with medication and any other evidence to support inadequate functioning at home will support the application. Communication with family is necessary to provide safe discharge and disposition of this patient. Other options: 1. Emergency guardianship 2. Supportive in-home services 3. Placement in an extended care facility Thank you for consultation and please address any questions. History of Present Illness Patient: new to practice Requesting Physician: Maribell Lilly MD Reason for consult: Competency evaluation History of present illness: Ms. Moe is a 81 year old female admitted to the hospital for treatment of acute respiratory failure. In addition patient had complex medical history including hypertension, acute kidney injury, CHF, COPD and coronary artery disease. Psychiatric was consulted regarding patient ability to make decision. Patient refuses to have cardiac catheter. Also she is refusing placement in ECF. Medical team. Patient is not safe to live by herself at home, she is now compliant with her medication and unable to pay her bills. She is reported as in-home health services. CC: Maribell Lilly MD Past Med Surg Social Fam HX - Past Medical History Medical history: cancer, hyperlipidemia, hypertension, other - Past Psychiatric History Psychiatric history: Reports: no psych history - Past Surgical History Surgical History: cancer surgery, hysterectomy - Social History Smoking Status: Unknown if ever smoked Smokeless Tobacco Status: No Alcohol use: none Drug use: none - Family History Brother History Unknown: Yes Family Member Ethnicity: Non- Living Status: Hx Family Cardiac Disorders: Yes (heart bypass) Hx Family Cancer: Yes (Prostate cancer) Hx Family Endocrine Disorder: Yes (Diabetes, Type I, Kidney dialysis) Medications & Allergies Acetaminophen [Tylenol Arthritis] 1,300 mg PO Q8H PRN 07/20/15 [History] Cholecalciferol (Vitamin D3) [Vitamin D3] 5,000 unit PO DAILY 07/20/15 [History] Ginkgo Biloba [place] Extract [Ginkgo Biloba] 120 mg PO DAILY 07/20/15 [History] Potassium Chloride [K-Tab ER] 10 meq PO DAILY 07/20/15 [History] Simvastatin [Zocor] 20 mg PO HS 07/20/15 [History] Lisinopril/Hydrochlorothiazide [Zestoretic 20-25 mg Tablet] 1 each PO BID #60 tablet 07/22/15 [Rx] Albuterol Sulfate [Albuterol Inhaler] 2 puff IH Q6H PRN 01/10/17 [History] Beclomethasone Diprop 80mcg [Qvar 80 mcg] 2 puff IH BID 01/10/17 [History] Meclizine HCl [Antivert] 12.5 mg PO BID PRN 01/10/17 [History] 3 Allergy/AdvReac Type Severity Reaction Status Date / Time Sulfa (Sulfonamide Allergy See Verified 01/10/17 07:10 Antibiotics) Comments Mental Status Exam Patient orientation: Yes Person, Yes Place Level of alertness: Alert Patient appearance: Unkempt, Inappropriate, Obese Behavior: calm, cooperative, distractible Psychomotor activity: Slowed Eye contact: Maintains Eye Contact Mood description: Euthymic/stable, Anxious Affect description: congruent with mood, euthymic Speech pattern: Normal rate, Normal rhythm, Normal tone, Disorganized, Impoverished Speech volume: Normal Thought process: Linear, Goal Oriented, Circumstantial, Tangential, Disorganized Thought content: No Suicidal ideation, No Homicidal ideation, No Overt delusions Perceptual disturbances: No Auditory hallucinations, No Visual hallucinations Attention span: Unable to Focus Memory description: Immediate Impaired, Recent Impaired, Remote Intact Patient reliability: Not Reliable Historian Intelligence estimate: Average Judgment: Limited Insight: Partial Results - Vital Signs Vital signs: Temp Pulse Resp BP Pulse Ox 98.2 F 94 18 140/72 94 01/12/17 10:53 01/12/17 10:53 01/12/17 10:53 01/12/17 10:53 01/12/17 10:53 - Labs Labs: Laboratory Last Values WBC 13.7 K/mcL (4.3-11.1) H 01/12/17 04:40 RBC 4.08 M/mcL (3.82-4.97) 01/12/17 04:40 Hgb 9.1 g/dL (11.5-15.4) L 01/12/17 04:40 Hct 30.6 % (35.3-44.9) L 01/12/17 04:40 MCV 75.0 fL (83.0-100.0) L 01/12/17 04:40 MCH 22.3 pg (28.0-33.3) L 01/12/17 04:40 MCHC 29.7 g/dL (31.6-35.5) L 01/12/17 04:40 RDW 16.5 % (11.5-14.5) H 01/12/17 04:40 Plt Count 330 K/mcL (140-400) 01/12/17 04:40 MPV 11.1 fL (9.4-12.4) 01/12/17 04:40 Immature Gran % 1.0 % (0-4) 01/12/17 04:40 Seg Neutrophils % 64.3 % 01/12/17 04:40 Lymphocytes % 26.4 % 01/12/17 04:40 Monocytes % 7.8 % 01/12/17 04:40 Eosinophils % 0.3 % 01/12/17 04:40 Basophils % 0.2 % 01/12/17 04:40 Neutrophils # 8.8 K/mcL (1.6-8.9) 01/12/17 04:40 Lymphocytes # 3.6 K/mcL (0.6-4.6) 01/12/17 04:40 Monocytes # 1.1 K/mcL (0.0-1.3) 01/12/17 04:40 Eosinophils # 0.0 K/mcL (0.0-0.6) 01/12/17 04:40 Basophils # 0.0 K/mcL (0.0-0.2) 01/12/17 04:40 Nucleated RBCs/100 WBC 0.1 /100 WBC (0) H 01/12/17 04:40 Immature Plt Fraction 6.9 % (1.1-6.1) H 01/10/17 02:05 PT 12.6 Seconds (9.4-12.1) H 01/10/17 06:09 INR 1.2 01/10/17 06:09 APTT 60.5 Seconds (26.0-36.0) H 01/11/17 17:42 D-Dimer 1505 ng/mLFEU (0-500) H 01/10/17 02:05 VBG pH 7.31 pH Units (7.32-7.42) L 01/10/17 02:31 VBG pCO2 47 mmHg (41-51) 01/10/17 02:31 VBG pO2 67 mmHg (25-50) H 01/10/17 02:31 VBG HCO3 24 mEq/L (21-27) 01/10/17 02:31 Sodium 139 mEq/L (136-145) 01/12/17 04:40 Potassium 3.0 mEq/L (3.5-4.5) L 01/12/17 04:40 Chloride 101 mEq/L (98-109) 01/12/17 04:40 Carbon Dioxide 30 mEq/L (19-29) H 01/12/17 04:40 BUN 31 mg/dL (7-20) H 01/12/17 04:40 Creatinine 1.16 mg/dL (0.57-1.11) H 01/12/17 04:40 Est GFR ( Amer) 54 (> 60) L 01/12/17 04:40 Est GFR (Non-Af Amer) 45 (> 60) L 01/12/17 04:40 BUN/Creatinine Ratio 27 (6-26) H 01/12/17 04:40 Glucose 92 mg/dL (70-99) 01/12/17 04:40 POC Glucose 110 (58-89) H 01/12/17 03:51 Calculated Osmolality 294 (280-300) 01/12/17 04:40 Lactic Acid 3.1 mmol/L (0.5-2.2) H 01/11/17 08:13 Calcium 9.1 mg/dL (8.6-10.8) 01/12/17 04:40 Phosphorus 3.2 mg/dL (2.3-4.7) 01/10/17 06:09 Magnesium 1.9 mg/dL (1.6-2.6) 01/11/17 08:13 Troponin I 12.17 ng/mL (0-0.03) H* 01/10/17 14:13 B-Natriuretic Peptide 1056 pg/mL (0-100) H 01/10/17 02:05 Triglycerides 119 mg/dL (< 150) 01/11/17 08:13 Cholesterol 180 mg/dL (< 200) 01/11/17 08:13 LDL Cholesterol, Calc 112 mg/dL (0-99) H 01/11/17 08:13 VLDL Cholesterol, Calc 24 mg/dL (< 31) 01/11/17 08:13 HDL Cholesterol 44 mg/dL (40-59) 01/11/17 08:13 Cholesterol/HDL Ratio 4.1 (0-4.9) 01/11/17 08:13 Urine Color Yellow (Yellow) 01/10/17 06:20 Urine Clarity Cloudy (Clear) A 01/10/17 06:20 Urine pH 5.5 pH Units (5.0-8.0) 01/10/17 06:20 Ur Specific [place] 1.029 (1.010-1.025) H 01/10/17 06:20 Urine Protein Trace mg/dL (Neg-Trace) 01/10/17 06:20 Urine Glucose (UA) Normal mg/dL (Normal) 01/10/17 06:20 Urine Ketones Negative mg/dL (Negative) 01/10/17 06:20 Urine Blood Trace (Negative) H 01/10/17 06:20 Urine Nitrite Negative (Negative) 01/10/17 06:20 Urine Bilirubin Negative (Negative) 01/10/17 06:20 Urine Urobilinogen Normal mg/dL (Normal) 01/10/17 06:20 Ur Leukocyte Esterase Negative (Negative) 01/10/17 06:20 Urine Microscopic RBC 0-3 per hpf (0-3) 01/10/17 06:20 Urine Microscopic WBC 0-3 per hpf (0-3) 01/10/17 06:20 Ur Squamous Epith Cells Many per lpf (None-Few) H 01/10/17 06:20 Urine Bacteria None Seen per hpf (None-Few) 01/10/17 06:20 Hyaline Casts None Seen per lpf (None-Few) 01/10/17 06:20 Ur Culture Indicated? NO (NO) 01/10/17 06:20 Consult Discharge Plan - Plan Referrals: Esdras Newton MD [Primary Care Provider] -
[2017-01-12] MEDS: *HR* Heparin 5,000 UNIT/ML VIAL SQ SCH (17:22)
[2017-01-12] MEDS: *HR* HYDROcodone/Acet 5/325 mg TABLET PO PRN (20:08)
[2017-01-13] MEDS: *HR* HYDROcodone/Acet 5/325 mg TABLET PO PRN (01:43)
[2017-01-13 03:55] LABS: Basophils % 0.3 %; Eosinophils # 0.1 K/mcL (0.0-0.6); Eosinophils % 0.9 %; Hemoglobin 9.2 g/dL (11.5-15.4); Immature Granulocytes % 0.4 % (0-4); Mean Corpuscular HGB Conc 29.7 g/dL (31.6-35.5); Mean Corpuscular Hemoglobin 22.5 pg (28.0-33.3); Mean Corpuscular Volume 75.8 fL (83.0-100.0); Mean Platelet Volume 11.7 fL (9.4-12.4); Monocytes # 0.9 K/mcL (0.0-1.3); Neutrophils # 5.8 K/mcL (1.6-8.9); Platelet Count 354 K/mcL (140-400); Red Blood Count 4.09 M/mcL (3.82-4.97); Red Cell Distribution Width 16.3 % (11.5-14.5); Segmented Neutrophils % 59.4 %
[2017-01-13 04:05] LABS: BUN/Creatinine Ratio 24 (6-26); Blood Urea Nitrogen 25 mg/dL (7-20); Calcium 9.3 mg/dL (8.6-10.8); Carbon Dioxide 27 mEq/L (19-29); Chloride 103 mEq/L (98-109); Glucose 94 mg/dL (70-99); Magnesium 1.6 mg/dL (1.6-2.6); Osmolality,Calculated 294 (280-300); Potassium 3.4 mEq/L (3.5-4.5); Sodium 140 mEq/L (136-145); eGFR For African Americans > 60 (> 60); eGFR For Non-African Americans 50 (> 60)
[2017-01-13] MEDS: *HR* Heparin 5,000 UNIT/ML VIAL SQ SCH ×2 (05:48→17:17)
[2017-01-13] MEDS ORDERED: Potassium Chloride Elixir 20 MEQ/15 ML UDC PO ONE (07:52)
--- NOTE | 2017-01-13 08:57 | Internal Med Progress Note ---
Date of Encounter: 01/13/17 Time of Encounter: 08:55 - Assessment and plan (1) Acute respiratory failure with hypoxia Current Visit: Yes Status: Acute Assessment and plan: Due to underlying acute CHF, [place]. Improving. Continue supplemental oxygen, currently requiring 4 L/m via nasal cannula. Will need home O2 evaluation at discharge. (2) Delirium due to general medical condition Current Visit: Yes Status: Acute Assessment and plan: Improved and mental status likely at baseline; alert and oriented; Supportive care and fall precautions. SHe was able to give me her niece's number - [phone]; I have personally called and spoke to YANET, who is patient's niece; her , Toni is financial POA; they will visit patient on 12/15. Her brothers and sisters-in- law will be here today, although patient is unwilling to share her medical diagnoses with them; Psychiatry consult noted; (3) SVETLANA (acute kidney injury) Current Visit: Yes Status: Acute Assessment and plan: Serum creatinine noted to be improving. Continue to monitor closely. (4) NSTEMI (non-ST elevated myocardial infarction) Current Visit: Yes Status: Acute Assessment and plan: Cardiology signed off , recommended medical management as patient continues to decline left heart catheterization. Continue aspirin, Plavix, beta ned and statin. Echocardiogram shows severely reduced ejection fraction around 30-35%, significant left ventricular segmental dysfunction in the LAD distribution, moderate left ventricular diastolic dysfunction, moderate pulmonary hypertension. Risk of cardiopulmonary complications high. (5) Acute CHF Current Visit: Yes Status: Acute Assessment and plan: Likely secondary to [place]. Echocardiogram as above. Continue oral Lasix, continue beta ned. Fluid restriction. Supplemental oxygen. Qualifiers: Congestive heart failure type: combined Qualified Code(s): I50.41 - Acute combined systolic (congestive) and diastolic (congestive) heart failure (6) Essential hypertension Current Visit: Yes Status: Chronic - Subjective Interval history: No new complaints; seems to be oriented, able to tell me minute details regarding her home health aide; answers sharply to safety concerns/questions, unwilling to consider ECF at this time; awaiting family members to arrive; able to recollect yesterday's meeting with [employer] sales representative and reports they talked about home O2; good appetite; reports constipation; improving shortness of breath, no chest pain, palpitations, dizziness; - Constitutional Vitals: Temp Pulse Resp BP Pulse Ox 98.2 F 79 20 141/77 100 01/13/17 07:00 01/13/17 07:00 01/13/17 07:00 01/13/17 07:00 01/13/17 07:00 General appearance: Present: A&O X 2, answers questions appropriately - Respiratory Respiratory exam: Present: CTAB (improving bibasal crepts). Absent: accessory muscle use, rales, rhonchi, wheezes - Cardiovascular Cardiovascular exam: Present: RRR, +S1, +S2. Absent: diastolic murmur, gallop, rubs, systolic murmur - GI/Abdominal GI/Abdominal exam: Present: normal bowel sounds, soft, no peritoneal signs. Absent: distended, tenderness - Extremities Exam Extremities exam: Present: full ROM, warm, radial pulses palpable and symmetrical. Absent: calf tenderness, cyanotic, pedal edema - Neurological Exam Neurological exam: Present: CN II-XII intact, oriented X3, no focal deficits. Absent: pronater drift, facial droop, speech deficit Internal Medicine: Result - Labs CBC & Chem 7: 01/13/17 03:18 01/13/17 03:18 Labs: Short CBC 01/13/17 Range/Units 03:18 WBC 9.8 (4.3-11.1) K/mcL Hgb 9.2 L (11.5-15.4) g/dL Hct 31.0 L (35.3-44.9) % Plt Count 354 (140-400) K/mcL Neutrophils # 5.8 (1.6-8.9) K/mcL BMP 01/13/17 03:18 Sodium 140 Potassium 3.4 L Chloride 103 Carbon Dioxide 27 BUN 25 H Creatinine 1.06 Glucose 94 Calcium 9.3 - ABG Interpretation ABG results: PT/INR, D-dimer PT 12.6 Seconds (9.4-12.1) H 01/10/17 06:09 D-Dimer 1505 ng/mLFEU (0-500) H 01/10/17 02:05 Consult Discharge Plan - Plan Referrals: Esdras Newton MD [Primary Care Provider] -
[2017-01-13] MEDS: Aspirin Enteric Coated 81 MG Tablet PO SCH (09:24)
[2017-01-13] MEDS: Furosemide 40 MG TABLET PO SCH ×2 (09:24→16:06)
[2017-01-13] MEDS: Metoprolol XL (24 HR) Succ 25 MG TAB.ER.24H PO SCH (09:25)
[2017-01-13] MEDS: Beclomethasone 80mcg MDI IH SCH ×2 (10:37→19:40)
[2017-01-13] MEDS: Sennosides/Docusate Sodium TABLET PO SCH ×2 (11:39→20:19)
[2017-01-13] MEDS: Acetaminophen 325 MG TABLET PO PRN (16:07)
[2017-01-14] MEDS: *HR* Heparin 5,000 UNIT/ML VIAL SQ SCH ×2 (05:52→17:15)
[2017-01-14] MEDS: levoFLOXacin 750 MG TABLET PO SCH (09:23)
[2017-01-14] MEDS: Sennosides/Docusate Sodium TABLET PO SCH ×2 (09:24→22:38)
[2017-01-14] MEDS: Furosemide 40 MG TABLET PO SCH ×2 (09:24→17:15)
[2017-01-14] MEDS: Aspirin Enteric Coated 81 MG Tablet PO SCH (09:24)
[2017-01-14] MEDS: Metoprolol XL (24 HR) Succ 25 MG TAB.ER.24H PO SCH (09:24)
--- NOTE | 2017-01-14 09:44 | Internal Med Progress Note ---
Date of Encounter: 01/14/17 Time of Encounter: 09:42 - Assessment and plan (1) Mental status change Current Visit: No Status: Resolved Assessment and plan: Patient is mentally clear and this morning oriented 3 Qualifiers: Altered mental status type: unspecified Qualified Code(s): R41.82 - Altered mental status, unspecified (2) Acute kidney injury superimposed on CKD Current Visit: No Status: Suspected Assessment and plan: I resolving creatinine 1.0 (3) Delirium due to general medical condition Current Visit: Yes Status: Acute Assessment and plan: Please see psych evaluation patient currently mentally clear (4) Obesity (BMI 30-39.9) Current Visit: No Status: Chronic Assessment and plan: Chronic due to excessive caloric intake (5) NSTEMI (non-ST elevated myocardial infarction) Current Visit: Yes Status: Acute Assessment and plan: Patient insisted that she only wants medical treatment no invasive intervention (6) Acute and chronic respiratory failure with hypoxia Current Visit: Yes Status: Acute Assessment and plan: Clinical much better longest clear no active wheezing will continue current treatment (7) Essential hypertension Current Visit: Yes Status: Chronic Assessment and plan: Blood pressure is well controlled (8) Cardiomyopathy Current Visit: Yes Status: Acute Assessment and plan: EF to 35% that well compensated away recheck BnP in a.m. Qualifiers: Cardiomyopathy type: unspecified Qualified Code(s): I42.9 - Cardiomyopathy , unspecified - Subjective Interval history: Patient with history of obesity, COPD, hypertension, CK D, patient was admitted due to shortness of breath diagnosed with congestive heart failure also had non- STEMI troponin was about 12 patient does not want invasive intervention just medical treatment. She is confused at times . was seen by as psychiatric please see evaluation for detail this morning patient is awake , alert oriented 3 and knows current event denies any chest pain chest no shortness of breath is much better - Constitutional Vitals: Temp Pulse Resp BP Pulse Ox 98.1 F 80 18 130/74 94 01/14/17 03:53 01/14/17 03:53 01/14/17 03:53 01/14/17 03:53 01/14/17 03:53 General appearance: Present: A&O X 2, A&O X 3, answers questions appropriately - Head Head exam: Present: atraumatic, normocephalic - Eye Eye exam: Present: PERRL, conjuntiva pink, sclera anicteric Pupils: Present: PERRL - Neck Neck exam general surgery: Present: supple, trachea midline. Absent: lymphadenopathy - Respiratory Respiratory exam: Present: CTAB. Absent: accessory muscle use, rales, rhonchi, wheezes - Cardiovascular Cardiovascular exam: Present: RRR, +S1, +S2. Absent: diastolic murmur, gallop, rubs, systolic murmur - GI/Abdominal GI/Abdominal exam: Present: normal bowel sounds, soft, no peritoneal signs. Absent: distended, tenderness - Extremities Exam Extremities exam: Present: warm, radial pulses palpable and symmetrical. Absent : calf tenderness, cyanotic, pedal edema Internal Medicine: Result - Labs CBC & Chem 7: 01/13/17 03:18 01/13/17 03:18 - ABG Interpretation ABG results: PT/INR, D-dimer PT 12.6 Seconds (9.4-12.1) H 01/10/17 06:09 D-Dimer 1505 ng/mLFEU (0-500) H 01/10/17 02:05 Consult Discharge Plan - Plan Additional Instructions: pcp requested Referrals: Esdras Newton MD [Primary Care Provider] -
[2017-01-14] MEDS: Beclomethasone 80mcg MDI IH SCH ×2 (09:45→20:19)
[2017-01-14 11:57] LABS: Calcium 9.4 mg/dL (8.6-10.8); Potassium 4.4 mEq/L (3.5-4.5)
[2017-01-15] MEDS: *HR* Heparin 5,000 UNIT/ML VIAL SQ SCH ×2 (06:56→17:51)
[2017-01-15] MEDS: Aspirin Enteric Coated 81 MG Tablet PO SCH (07:50)
[2017-01-15] MEDS: Sennosides/Docusate Sodium TABLET PO SCH ×2 (07:51→21:22)
[2017-01-15] MEDS: Metoprolol XL (24 HR) Succ 25 MG TAB.ER.24H PO SCH (07:51)
[2017-01-15] MEDS: Furosemide 40 MG TABLET PO SCH ×2 (07:51→17:51)
[2017-01-15] MEDS: Beclomethasone 80mcg MDI IH SCH ×2 (07:58→20:19)
[2017-01-15] MEDS: Acetaminophen 325 MG TABLET PO PRN (10:17)
--- NOTE | 2017-01-15 14:04 | Internal Med Progress Note ---
Date of Encounter: 01/15/17 Time of Encounter: 12:00 - Assessment and plan (1) Acute respiratory failure with hypoxia Current Visit: Yes Status: Acute Assessment and plan: Remains on 4 L O2 supplementation. Patient will most likely need home oxygen. We will make arrangements for this prior to discharge (2) Acute CHF Current Visit: Yes Status: Acute Assessment and plan: Improving. Continue oral Lasix. Echocardiogram shows EF of 30-35% with segmental left ventricular systolic dysfunction. Patient also has moderate pulmonary hypertension and moderate left ventricle diastolic dysfunction. Qualifiers: Congestive heart failure type: combined Qualified Code(s): I50.41 - Acute combined systolic (congestive) and diastolic (congestive) heart failure (3) SVETLANA (acute kidney injury) Current Visit: Yes Status: Acute Assessment and plan: Creatinine has improved to baseline. Patient does appear to have chronic kidney disease stage II (4) Delirium due to general medical condition Current Visit: Yes Status: Resolved Assessment and plan: Acute delirium appears to have resolved now. (5) Essential hypertension Current Visit: Yes Status: Chronic Assessment and plan: Blood pressure is well controlled (6) NSTEMI (non-ST elevated myocardial infarction) Current Visit: Yes Status: Acute Assessment and plan: Medical management. On aspirin, Plavix, HARSHA inhibitor and beta ned. Follow -up outpatient with cardiology for further management (7) Chronic kidney disease, stage II (mild) Current Visit: Yes Status: Chronic Assessment and plan: Patient's creatinine appears to be at baseline - Subjective Interval history: Patient is lying in bed. Appears comfortable. Has occasional shortness of breath but no chest pain. Doing well overall. No other complaints reported at this time. - Constitutional Vitals: Temp Pulse Resp BP Pulse Ox 98.3 F 83 16 131/63 95 01/15/17 06:50 01/15/17 06:50 01/15/17 07:58 01/15/17 06:50 01/15/17 07:58 General appearance: Present: cooperative, A&O X 3, answers questions appropriately - Neck Neck exam general surgery: Present: supple, trachea midline. Absent: lymphadenopathy - Respiratory Respiratory exam: Present: CTAB. Absent: accessory muscle use, rales, rhonchi, wheezes - Cardiovascular Cardiovascular exam: Present: RRR, +S1, +S2. Absent: diastolic murmur, gallop, rubs, systolic murmur - GI/Abdominal GI/Abdominal exam: Present: normal bowel sounds, soft, no peritoneal signs. Absent: distended, tenderness Internal Medicine: Result - Labs CBC & Chem 7: 01/13/17 03:18 01/14/17 11:29 - ABG Interpretation ABG results: PT/INR, D-dimer PT 12.6 Seconds (9.4-12.1) H 01/10/17 06:09 D-Dimer 1505 ng/mLFEU (0-500) H 01/10/17 02:05 Consult Discharge Plan - Plan Additional Instructions: pcp requested Referrals: Esdras Newton MD [Primary Care Provider] -
[2017-01-16] MEDS: Acetaminophen 325 MG TABLET PO PRN (06:11)
[2017-01-16] MEDS: *HR* Heparin 5,000 UNIT/ML VIAL SQ SCH (06:11)
[2017-01-16 06:52] VITALS: BP 139/68
[2017-01-16] MEDS: Beclomethasone 80mcg MDI IH SCH (07:58)
[2017-01-16] MEDS: Metoprolol XL (24 HR) Succ 25 MG TAB.ER.24H PO SCH (08:38)
[2017-01-16] MEDS: levoFLOXacin 750 MG TABLET PO SCH (08:38)
[2017-01-16] MEDS: Aspirin Enteric Coated 81 MG Tablet PO SCH (08:38)
[2017-01-16] MEDS: Furosemide 40 MG TABLET PO SCH (08:38)
[2017-01-16] MEDS: Sennosides/Docusate Sodium TABLET PO SCH (08:39)
--- NOTE | 2017-01-16 12:08 | Discharge Summary ---
Date of Encounter: 01/16/17 Time of Encounter: 09:15 - Discharge Diagnosis (1) NSTEMI (non-ST elevated myocardial infarction) Priority: Primary Status: Acute (2) Acute respiratory failure with hypoxia Priority: Secondary Status: Acute (3) Acute CHF Priority: Secondary Status: Acute Qualifiers: Congestive heart failure type: combined Qualified Code(s): I50.41 - Acute combined systolic (congestive) and diastolic (congestive) heart failure (4) SVETLANA (acute kidney injury) Priority: Secondary Status: Acute (5) Delirium due to general medical condition Priority: Secondary Status: Resolved (6) Essential hypertension Priority: Secondary Status: Chronic (7) Chronic kidney disease, stage II (mild) Priority: Secondary Status: Chronic - Discharge Medications Prescriptions: Aspirin Enteric Coated [Aspirin EC] 81 mg PO DAILY #30 tablet. Atorvastatin [Lipitor] 40 mg PO HS #30 tablet Clopidogrel [Plavix] 75 mg PO DAILY #30 tablet Furosemide [Lasix] 40 mg PO DAILY #30 tablet Lisinopril [Zestril] 2.5 mg PO DAILY #30 tablet Metoprolol XL (24 HR) Succ [Toprol Xl] 25 mg PO DAILY #30 tab.er.24h Home Medications: Acetaminophen [Tylenol Arthritis] 1,300 mg PO Q8H PRN 07/20/15 [History] Cholecalciferol (Vitamin D3) [Vitamin D3] 5,000 unit PO DAILY 07/20/15 [History] Potassium Chloride [K-Tab ER] 10 meq PO DAILY 07/20/15 [History] Lisinopril/Hydrochlorothiazide [Zestoretic 20-25 mg Tablet] 1 each PO BID #60 tablet 07/22/15 [Rx] Albuterol Sulfate [Albuterol Inhaler] 2 puff IH Q6H PRN 01/10/17 [History] Beclomethasone Diprop 80mcg [QVAR 80 mcg] 2 puff IH BID 01/10/17 [History] Meclizine HCl [Antivert] 12.5 mg PO BID PRN 01/10/17 [History] Aspirin Enteric Coated [Aspirin EC] 81 mg PO DAILY #30 tablet. 01/16/17 [Rx] Atorvastatin [Lipitor] 40 mg PO HS #30 tablet 01/16/17 [Rx] Clopidogrel [Plavix] 75 mg PO DAILY #30 tablet 01/16/17 [Rx] Furosemide [Lasix] 40 mg PO DAILY #30 tablet 01/16/17 [Rx] Lisinopril [Zestril] 2.5 mg PO DAILY #30 tablet 01/16/17 [Rx] Metoprolol XL (24 HR) Succ [Toprol Xl] 25 mg PO DAILY #30 tab.er.24h 01/16/17 [ Rx] Allergies/Adverse Reactions: 3 Allergy/AdvReac Type Severity Reaction Status Date / Time Sulfa (Sulfonamide Allergy See Verified 01/10/17 07:10 Antibiotics) Comments Date of admission: 01/10/17 06:21 Primary care physician: Esdras Newton MD Consults: 01/10/17 07:51 Consult to Financial Systems Director [CONS] Routine Reason for SW Consult: discharge needs 01/11/17 12:08 Consult to Occupational Therapy [CONS] Routine Comment: Evaluate, develop and implement POC Reason for Consult: Generalized weakness, NH, lives alone at home Consult to Physical Therapy [CONS] Routine Comment: Evaluate, develop and implement POC Reason for Consult: Generalized weakness, NH, lives alone at home 01/11/17 12:33 Consult to Financial Systems Director [CONS] Routine Reason for SW Consult: No family to be reached, patient is sick and confused ; unsafe to live alone at home 01/11/17 18:03 Consult to Psychiatry [CONS] Routine Consulting Provider: Emmanuel Mckeon Reason for Consult: to see if she is incompent to make her own decisions Call Completed: No Discharging clinician: Za Mccarthy Anticipated date of discharge: 01/16/17 - Patient Status Disposition: Home Health Service Condition: Good Functional capacity at discharge: uses cane/walker Overall status at discharge: patient is progressing back to baseline - Discharge Instructions Instructions: Myocardial Infarction (DC), Heart Failure (DC) Follow Up With: Esdras Newton MD [Primary Care Provider] - (in 1 week) Felice Shelley [Partnered Physician] - (in 1 week) Additional Instructions: pcp requested - Diet and Activity Activity: increase activity as tolerated Diet: low fat, low cholesterol, low salt diet Hospital course: Ms. Moe is a 81 year old female patient with history of essential hypertension , hyperlipidemia who was admitted here with acute NSTEMI, CHF and resp failure. She was started on treatment per ACS protocol with IV heparin. Cardiology was consulted. Cath was recommended but patient did not want this procedure. So conservative medical management was continued. Patient did have delirium on presentation and there was concern about her capacity to make medical decisions. Psychiatry evaluated her and did not make any decision on competency. Patient does appear to have capacity to make medical decisions as she does have understanding of her medical conditions and is well oriented. family service caseworker was consulted to evaluate for home safety after PT recommended home health. Patient does not wish to go anywhere else. She does require 24 hour supervision which the patient's family is making arrangements for. She will be discharged today as she is clinically stable for discharge. She does require home O2 per our evaluation here due to CHF. This is currently being arranged by the social services manager. Patient has poor EF 30-35% with moderate pulmonary hypertension and LV diastolic dysfunction. She is being discharged on ASA, plavix, lasix, lisinopril, atorvastatin and metoprolol. - Time Spent with Patient Total time spent providing and/or coordinating discharge services: Greater than 30 minutes (40 min) - Constitutional Vitals: Temp Pulse Resp BP Pulse Ox 98.6 F 78 16 139/68 92 01/16/17 06:50 01/16/17 06:50 01/16/17 06:50 01/16/17 06:50 01/16/17 10:55 General appearance: Present: cooperative, A&O X 3, answers questions appropriately - Neck Neck exam general surgery: Present: supple, trachea midline. Absent: lymphadenopathy - Respiratory Respiratory exam: Present: decreased breath sounds (at both bases). Absent: accessory muscle use, rales, rhonchi, wheezes - Cardiovascular Cardiovascular exam: Present: RRR, +S1, +S2. Absent: diastolic murmur, gallop, rubs, systolic murmur - GI/Abdominal GI/Abdominal exam: Present: normal bowel sounds, soft, no peritoneal signs. Absent: distended, tenderness - Extremities Exam Extremities exam: Present: warm, radial pulses palpable and symmetrical. Absent : calf tenderness, cyanotic, pedal edema - Neurological Exam Neurological exam: Present: alert, oriented X3, no focal deficits. Absent: facial droop, speech deficit
--- NOTE | 2017-01-16 12:22 | Physician Discharge Referral ---
Home Health/Hosp Referral Info Transfer to: Home Health Provider in Charge Post Discharge: PCP - Diagnosis (1) NSTEMI (non-ST elevated myocardial infarction) Priority: Primary Status: Acute (2) Acute respiratory failure with hypoxia Priority: Secondary Status: Acute (3) Acute CHF Priority: Secondary Status: Acute (4) SVETLANA (acute kidney injury) Priority: Secondary Status: Acute (5) Delirium due to general medical condition Priority: Secondary Status: Resolved (6) Essential hypertension Priority: Secondary Status: Chronic (7) Chronic kidney disease, stage II (mild) Priority: Secondary Status: Chronic - Respiratory Orders Oxygen / L per min (3) Smoking Cessation: Smoking cessation has been advised. For more information, call the [place] Tobacco Quit Line at 6-763-GXRZ-NOW. - Diet/Nutrition Diet/Nutrition Orders: Cardiac - Activity Activity Orders: Walker - Services Needed Following services are medically necessary services: Nursing, Home Health Aide, Physical Therapy, Occupational Therapy, Med Social Work - Transfer Medications Prescriptions: Aspirin Enteric Coated [Aspirin EC] 81 mg PO DAILY #30 tablet. Atorvastatin [Lipitor] 40 mg PO HS #30 tablet Clopidogrel [Plavix] 75 mg PO DAILY #30 tablet Furosemide [Lasix] 40 mg PO DAILY #30 tablet Lisinopril [Zestril] 2.5 mg PO DAILY #30 tablet Metoprolol XL (24 HR) Succ [Toprol Xl] 25 mg PO DAILY #30 tab.er.24h Home Medications: Acetaminophen [Tylenol Arthritis] 1,300 mg PO Q8H PRN 07/20/15 [History] Cholecalciferol (Vitamin D3) [Vitamin D3] 5,000 unit PO DAILY 07/20/15 [History] Potassium Chloride [K-Tab ER] 10 meq PO DAILY 07/20/15 [History] Lisinopril/Hydrochlorothiazide [Zestoretic 20-25 mg Tablet] 1 each PO BID #60 tablet 07/22/15 [Rx] Albuterol Sulfate [Albuterol Inhaler] 2 puff IH Q6H PRN 01/10/17 [History] Beclomethasone Diprop 80mcg [QVAR 80 mcg] 2 puff IH BID 01/10/17 [History] Meclizine HCl [Antivert] 12.5 mg PO BID PRN 01/10/17 [History] Aspirin Enteric Coated [Aspirin EC] 81 mg PO DAILY #30 tablet. 01/16/17 [Rx] Atorvastatin [Lipitor] 40 mg PO HS #30 tablet 01/16/17 [Rx] Clopidogrel [Plavix] 75 mg PO DAILY #30 tablet 01/16/17 [Rx] Furosemide [Lasix] 40 mg PO DAILY #30 tablet 01/16/17 [Rx] Lisinopril [Zestril] 2.5 mg PO DAILY #30 tablet 01/16/17 [Rx] Metoprolol XL (24 HR) Succ [Toprol Xl] 25 mg PO DAILY #30 tab.er.24h 01/16/17 [ Rx] Allergies/Adverse Reactions: 3 Allergy/AdvReac Type Severity Reaction Status Date / Time Sulfa (Sulfonamide Allergy See Verified 01/10/17 07:10 Antibiotics) Comments Certification: Further, I certify that my clinical findings support that this patient is homebound (i.e. absences from home require considerable and taxing effort and are for medical reasons or moravian services or infrequently or short duration when for other reasons) because: Homebound Reason: Patient requires assistance of a person or device to safely leave home Attestation: My signature below is to certify that this patient is under my care and that I, or nurse practitioner, or a physician's cardiovascular physician assistant working with me, has a face-to -face encounter with this patient.
== END 2017-01-16 16:30 | disposition home health service (06) | DRG 190 ==
LOC: EMEROO 00:55 → 2NENU 00:55 → SUATTDRO 06:21 → 2NENU 07:00
PROVIDERS: ADMIT Internal Medicine; ATTEND Internal Medicine